=== PATIENT | male | born 1965 | race Caucasian/White ===

== ENCOUNTER 2017-01-06 04:41 | Emergency (ER) | payer OTHER ==
[~2017-01-06] VITALS: Ht 162.6 cm; Wt 99.0 kg
[~2017-01-06 04:41] MED LIST: METHO500 PO; NAPR-729 PO; NAPR500 PO
[2017-01-06 04:47] VITALS: BP_SYST 210; BP_SYST 213; BP_DIAS 100; BP_DIAS 105; PULSE 97; RESP 16; TEMP 98; O2SAT 98
[2017-01-06 05:00] VITALS: BP 196/62; PULSE 96; RESP 16; O2SAT 98
[2017-01-06] MEDS ORDERED: LISI10TA PO (05:02)
[2017-01-06 05:05] VITALS: BP 205/107
[2017-01-06] MEDS ORDERED: ACETAMINOPHEN 325 MG TAB PO ONE (05:15)
[2017-01-06] MEDS ORDERED: LISI-515 PO (05:16)
[2017-01-06] MEDS ORDERED: LISINOPRIL 20 MG TAB PO ONE (05:30)
--- NOTE | 2017-01-06 05:54 | PD ---
HPI Chief Complaint: ENT Complaint Time Seen by Provider: 05:06 Travel History International Travel<30 days: No Contact w/Intl Traveler<30days: No Traveled to known affect area: No History of Present Illness HPI The patient is a 51 year old male who presents to the [facility] emergency department with a history of right ear pain that he reports began 3 days ago. The patient reports that the pain has been constant although gradually getting worse with time. He reports that he's had swelling to the ear canal and yellow to green drainage. He reports that he has had problems with ear infections in the past. 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 The patient reports that he's been taking Aleve alternating with ibuprofen for the pain. He denies having any nasal congestion , sinus pressure, nasal discharge, cough, postnasal drip, or sore throat associated with this. The patient is noted on arrival to have elevated blood pressure with a systolic of 200. He reports that he does have a history of high blood pressure, however he has not been taking his medication for the last 2 years. He denies having any headache other than the ear pain, neck pain, chest pain, chest pressure, shortness of breath, or neurologic symptoms. Otherwise on review of systems, the patient denies any recent fevers, abdominal pain, vomiting, diarrhea, urinary symptoms. [facility] Past Medical History Narrative Medical The patient's past medical history is significant for hypertension. Hypertension: Yes Past Surgical History Narrative Surgical The patient's past surgical history is reportedly none. Surgical History: No Previous Surgery Social History Alcohol Use: No Tobacco Use: No Substance Use: No Allergies-Medications (Allergen,Severity, Reaction): Coded Allergies: Penicillin (Unverified Allergy, Intermediate, rash, 01/06/17) Reported Meds & Prescriptions Reported Meds & Active Scripts Active Lisinopril 20 Mg Tab 20 Mg PO DAILY Reported Lisinopril-Hctz 10-12.5 Mg Tab 1 Tab PO DAILY Review of Systems Except as stated in HPI: all other systems reviewed are Neg General / Constitutional: No: Fever Eyes: No: Visual changes HENT: Positive: Ear Discharge, Earache, No: Headaches, Sore Throat, Rhinorrhea , Congestion Cardiovascular: No: Chest Pain or Discomfort Respiratory: No: Cough, Shortness of Breath Gastrointestinal: No: Abdominal Pain Genitourinary: No: Dysuria Musculoskeletal: No: Pain Skin: No Rash Neurologic: No: Weakness, Focal Abnormalities, Change in Mentation, Slurred Speech, Sensory Disturbance Psychiatric: No: Depression Endocrine: No: Polydipsia Hematologic/Lymphatic: No: Easy Bruising Physical Exam Narrative General: The patient is a well-developed well-nourished female in no acute distress. Head and Neck exam: Head is normocephalic atraumatic. Eyes: EOMI, pupils are equal round and reactive to light. Ear exam: The patient on examination of the left ear has no tears swelling or tenderness on palpation, external auditory canal is not erythematous, tympanic membrane is pearly with a good cone of light, no erythema or exudate. On examination of the right ear the patient is noted to have swelling of the canal with erythema and tenderness on palpation of the tragus. The patient has a yellow discharge noted. The tympanic membrane is unable to be fully visualized due to the drainage in the canal and swelling. Nose: Midline septum with pink mucous membranes Mouth: Dentition unremarkable. Moist mucus membranes. Posterior oropharynx is not erythematous. No tonsillar hypertrophy. Uvula midline. Airway patent. Neck: No palpable lymphadenopathy. No nuchal rigidity. No thyromegaly. Cardiovascular: Regular rate and rhythm without murmurs, gallops, or rubs. Lungs: Clear to auscultation bilaterally. No wheezes, rhonchi, or rales. Abdomen: Soft, without tenderness to palpation in all 4 quadrants of the abdomen. No guarding, rebound, or rigidity. Normal bowel sounds are audible. Extremities: No clubbing, cyanosis, or edema. 2+ pulses in all 4 extremities. No calf tenderness on palpation. Back: No costovertebral angle tenderness to palpation. Neurologic Exam: Grossly nonfocal. Skin Exam: No rash noted. Intact skin that is warm and dry. Data Data Last Documented VS Vital Signs Date Time Temp Pulse Resp B/P Pulse Ox O2 Delivery O2 Flow Rate FiO2 01/06/17 06:28 87 187/90 01/06/17 05:00 16 98 01/06/17 04:47 98.0 Orders Acetaminophen (Tylenol) (01/06/17 05:15) Lisinopril (Prinivil) (01/06/17 05:30) [facility] Medical Decision Making Medical Screen Exam Complete: Yes Emergency Medical Condition: Yes Medical Record Reviewed: Yes Differential Diagnosis Otitis externa, versus otitis media Narrative Course During the course of the patients emergency department visit, the patients history, examination, and differential diagnosis were reviewed with the patient. The patient on examination has an otitis externa. The patient will be discharged home with Ciprodex eardrops and an oral antibiotic. The patient was started on lisinopril 20 mg by mouth. The patient will be given a prescription at discharge and encouraged follow-up with a primary care physician. The patient was initially provided Tylenol for pain. The patient is resting comfortably and feels better, is alert and in no distress. The patients results and examination findings were discussed with the patient. The repeat examination is unremarkable and benign. The history, exam, diagnostic testing, and current condition do not suggest any significant pathology to warrant further testing, continued ED treatment, admission, or surgical evaluation at this point. The vital signs have been stable. The patient does not have uncontrollable pain, intractable vomiting, or other significant symptoms. The patient's condition is stable and appropriate for discharge. The patient will pursue further outpatient evaluation with a primary care physician or other designated or consulting physician as indicated in the discharge instructions. The patient expressed understanding and was agreeable with this plan. Diagnosis Primary Impression: Otitis externa Qualified Code: H60.501 - Acute otitis externa of right ear, unspecified type Additional Impression: Hypertension Qualified Code: I10 - Essential hypertension Referrals: Primary Care Physician 3 days Patient Instructions: General Instructions, Hypertension (ED), Otitis Externa ( ED) Departure Forms: Tests/Procedures, Work Release Enter return to work date: Jan 07, 2017 Scripts Ciprofloxacin-Dexamethasone Otic Drops (Ciprodex Otic Drops)0.3-0.1% Susp4 Drop RIGHT EAR BID #1 BOTTLE Ref 0 Prov:Rizwana Garcia MD 01/06/17 Cephalexin (Keflex)500 Mg Qnv690 Mg PO Q6H #40 CAP Ref 0 Prov:Rizwana Garcia MD 01/06/17 Lisinopril 20 Mg Tab20 Mg PO DAILY #30 TAB Ref 0 Prov:Rizwana Garcia MD 01/06/17 Disposition: 01 DISCHARGE HOME Condition: Stable Rizwana Garcia MD Jan 06, 2017 05:54
[2017-01-06 06:28] VITALS: BP 187/90; PULSE 87
[2017-01-06] MEDS ORDERED: CIPR0.3S RIGHT EAR (06:46)
[2017-01-06] MEDS ORDERED: CEPH-460 PO (06:46)
[2017-01-06 06:52] VITALS: BP 175/89
== END 2017-01-06 06:47 | disposition home or self-care (01) ==
LOC: NEPC 04:41
DX: H60.501 Unspecified acute noninfective otitis externa, right ear (principal); I10 Essential (primary) hypertension
CPT/HCPCS: 99283

== ENCOUNTER 2018-07-27 04:37 | Inpatient (IN) ==
[2018-07-27] MEDS ORDERED: Sod Chloride 0.9% Inj 1,000 ML IV.CONT SCH (04:45)
--- NOTE | 2018-07-27 04:45 | ED ---
HPI General Chief Complaint: Neuro Symptoms/Deficit Stated Complaint: Medical Time Seen by Provider: 07/27/18 04:38 Source: family Mode of arrival: other Limitations: language barrier History of Present Illness HPI Narrative: Please note that the patient was seen before registration process was completed at 35 and notes as well as NIH SS was performed at that time Patient apparently started having symptoms of left facial droop slurred speech since about 1030pm at which time he felt weak and was unable to ambulate well but thought perhaps he had too much to drink...he made it to his bed but at a later time he was trying to get up from bed and ended up "sliding down the side " of the bed...at this time he called his son to assist him in getting up at around 4 in the morning and the patient was brought in here shortly after at 35 susanna has h/o dm and htn supposed to be on bp med and metformin but hasn't been on those for months Related Data Home Medications Medication Instructions Recorded Confirmed aspirin 81 mg PO DAILY 07/27/18 07/30/18 lisinopril 20 mg PO DAILY 07/27/18 07/30/18 Previous Rx's Medication Instructions Recorded amlodipine [Norvasc] 5 mg PO DAILY tab 07/30/18 clopidogrel [Plavix] 75 mg PO DAILY #0 tab 07/30/18 famotidine 20 mg PO BID tab 07/30/18 fenofibrate nanocrystallized 145 mg PO DAILY tab 07/30/18 hydralazine 50 mg PO Q8H tab 07/30/18 insulin detemir U-100 [Levemir 5 unit SUBCUT BID ml 07/30/18 U-100 Insulin] metformin [Glucophage] 500 mg PO BIDPC tab 07/30/18 Allergies Allergy/AdvReac Type Severity Reaction Status Date / Time penicillin G Allergy Intermediate rash Verified 07/30/18 20:38 Review of Systems ROS: all other systems reviewed are negative PMFSH History History Provided By: Family Member Medical History Medical History Diabetes (Acute) Hypertension (Acute) Non-compliant behavior (Acute) Surgical History Surgical History No history of previous surgery (Acute) Family History Family History Other Family history of acute myocardial infarction Family history of diabetes mellitus Family history of hypertension Social History Social History Substance History: No History of Abuse Second Hand Smoke Exposure: No Smoking Status: Former smoker Tobacco Type: Cigarettes How Often Do You Have a Drink Containing Alcohol: Monthly or less Hx Recent Travel: No Recent Travel in [facility] within the Last 8 Weeks: No Recent Out of Country Travel within the Last 8 Weeks: No Exam Narrative Exam Narrative: GENERAL: Well-nourished, well-developed patient in no apparent distress. SKIN: Warm and dry. HEAD: Atraumatic. Normocephalic. EYES: Pupils equal and round. No scleral icterus. No injection or drainage. ENT: No nasal bleeding or discharge. Mucous membranes pink and moist. NECK: Trachea midline. No JVD. CARDIOVASCULAR: Regular rate and rhythm. no rubs or gallops RESPIRATORY: No accessory muscle use. Clear to auscultation. Breath sounds equal bilaterally. GASTROINTESTINAL: Abdomen soft, non-tender, nondistended. No rebound or guarding MUSCULOSKELETAL: Extremities without clubbing, cyanosis, or edema. No obvious deformities. NEUROLOGICAL: Awake and alert. No obvious cranial nerve deficits. Motor grossly within normal limits. Five out of 5 muscle strength in the arms and legs on right...however lue 4/5, lle 3/5. slurred speech. Course Initial Documented Vital Signs Temperature 98.9 F 07/27/18 04:38 Pulse Rate 106 H 07/27/18 04:38 Respiratory Rate 18 07/27/18 04:38 Blood Pressure 221/107 H 07/27/18 04:38 Pulse Oximetry 98 07/27/18 04:38 Last Documented Vital Signs Temperature 97.4 F L 07/30/18 12:00 Pulse Rate 87 07/30/18 12:00 Respiratory Rate 18 07/30/18 12:00 Blood Pressure 131/72 07/30/18 12:00 Pulse Oximetry 96 07/30/18 12:00 Critical Care Time Critical Care Time: Yes Total Critical Care Time: 60 Attestation: Aggregate critical care time was 60 minutes. Time to perform other separately billable procedures was not included in the critical care time. My time did not include minutes spent treating any other patients simultaneously or on activities that did not directly contribute to the patient's treatment. The services I provided to this patient were to treat and/or prevent clinically significant deterioration I provided critical care services requiring my management, as noted below: Chart data review, documentation time, medication orders and management, vital sign assessments/reviewing monitor data, ordering and reviewing lab tests, ordering and interpreting/reviewing x-rays and diagnostic studies, care of the patient and discussion of the patient with the admitting physicians. NIH Stroke Scale NIHSS Time Completed NIHSS Time Completed: 04:35 NIH Stroke Scale Level of Consciousness: 0-Alert Responds to Commands: 0-Both tasks correct Gaze Eye Movement: 0-Horizontal movement WNL Visual Mims: 0-No visual field defect Facial Movement: 1-Minor facial palsy Motor Functions Arm LEFT: 1-Drift before 10 seconds Motor Functions Arm RIGHT: 0-No drift Motor Functions Leg LEFT: 2-Falls before 5 seconds Motor Functions Leg RIGHT: 0-No drift Best Language: 1-Mild aphasia Articulation: 1-Mild dysarthia Total: 6 Medical Decision Making MDM Narrative Medical decision making narrative: d/w dr mattson who stated not tpa candidate due to over 5hrs (around 6hrs), ct neg for ich, and cta neg for interventional lesions. Medical Screen Exam Complete: Yes Emergency Medical Condition: Yes Lab Data Result diagrams: 07/29/18 05:33 07/29/18 05:33 Lab Results 07/27/18 07/27/18 07/27/18 Range/Units 04:41 04:41 04:41 WBC 12.7 H (4.0-11.0) th/mm3 RBC 5.89 (4.50-5.90) mil/mm3 Hgb 17.2 H (13.0-17.0) gm/dL POC Hgb (Calc) (13.0-17.0) g/dL Hct 50.4 (39.0-51.0) % POC Hct (39-51.0) % MCV 85.5 (80.0-100.0) fL MCH 29.2 (27.0-34.0) pg MCHC 34.2 (32.0-36.0) % RDW 13.5 (11.6-17.2) % Plt Count 274 (150-450) th/mm3 MPV 9.1 (7.0-11.0) fL Neut % (Auto) 74.4 H (16.0-70.0) % Lymph % (Auto) 19.3 (9.0-44.0) % [place] % (Auto) 4.9 (0.0-8.0) % Eos % (Auto) 0.7 (0.0-4.0) % Baso % (Auto) 0.7 (0.0-2.0) % Neut # (Auto) 9.5 H (1.8-7.7) th/mm3 Lymph # (Auto) 2.5 (1.0-4.8) th/mm3 [place] # (Auto) 0.6 (0.0-0.9) th/mm3 Eos # (Auto) 0.1 (0.0-0.4) th/mm3 Baso # (Auto) 0.1 (0.0-0.2) th/mm3 WBC Differential . Differential Comment Auto diff final PT 10.0 (9.8-11.6) sec INR 1.0 Ratio APTT 28.2 (23.4-31.7) sec Thrombin Time Fibrinogen 439 H (227-377) mg/dL Lupus Anticoagulant (NOT DETECTED) LA PTT Screen (< OR = 40) seconds dRVVT Screen (< OR = 45) seconds LA dRVVT Confirm dRVVT Mix Hexagonal Phase Confirm Protein C Antigen (70-150) % Protein C Activity (70 - 150) % Protein S Activity (65 - 160) % Free Protein S Antigen (65 - 160) % Factor V Leiden Mutat (Negative) Factor V Leiden Interp Fact V Leiden Review By POC Sodium (137-144) mmol/L Sodium 137 (136-145) meq/L POC Potassium (3.6-5.0) mmol/L Potassium 4.0 (3.5-5.1) meq/L POC Chloride (102-111) mmol/L Chloride 101 (98-107) meq/L Carbon Dioxide 23.8 (21.0-32.0) meq/L Anion Gap 12 (5-15) meq/L POC BUN (5-21) mg/dL BUN 11 (7-18) mg/dL Creatinine 0.90 (0.60-1.30) mg/dL POC Creatinine (0.6-1.3) mg/dL Estimated GFR 88 L (>89) mL/min POC Glucose (68-110) mg/dL Random Glucose 291 H (74-106) mg/dL Hemoglobin A1c (4.3-6.0) % Calcium 8.2 L (8.5-10.1) mg/dL Phosphorus (2.5-4.9) mg/dL Magnesium (1.5-2.5) mg/dL Total Bilirubin 0.4 (0.2-1.0) mg/dL AST 19 (15-37) U/L ALT 48 (12-78) U/L Alkaline Phosphatase 184 H (45-117) U/L Total Creatine Kinase 85 (39-308) U/L Troponin I Less than 0.02 L (0.02-0.05) ng/mL Total Protein 7.9 (6.4-8.2) g/dL Albumin 3.8 (3.4-5.0) g/dL Triglycerides (42-150) mg/dL Cholesterol (120-200) mg/dL LDL Cholesterol, Calc (0-99) mg/dL HDL Cholesterol (40.0-60.0) mg/dL Cholesterol/HDL Ratio Ratio TSH (0.358-3.740) uIU/mL Free T4 (0.76-1.46) ng/dL Urine Color (Yellw/Straw) Urine Clarity (Clear) Urine pH (5.0-8.5) Ur Specific [place] (1.002-1.035) Urine Protein (Neg-Trace) mg/dL Urine Glucose (UA) (Negative) mg/dL Urine Ketones (Negative) mg/dL Urine Occult Blood (Negative) Urine Nitrate (Negative) Urine Bilirubin (Negative) Urine Urobilinogen (Less than 2) mg/dL Ur Leukocyte Esterase (Negative) Urine RBC (0-3) /hpf Urine WBC (0-5) /hpf Calcium Oxalate Crystal (None) /hpf Amorphous Sediment (None) /hpf Urine Bacteria (None) /hpf Hyaline Casts (0-3) /lpf Urine Mucus (Occasional) /lpf Micro UA Comment Ur Microscopic Review Urine Culture Comments Urine Opiates Screen (Neg) Ur Barbiturates Screen (Neg) Ur Amphetamines Screen (Neg) U Benzodiazepines Scrn (Neg) Urine Cocaine Screen (Neg) U Cannabinoids Screen (Neg) Serum Alcohol Less than 3 (0-5) mg/dL Anti-Cardiolipin IgG Ab GPL Anti-Cardiolipin IgM Ab MPL Prothrombin [id number] Mut Blood Type Blood Type Recheck Antibody Screen 07/27/18 07/27/18 07/27/18 Range/Units 04:41 04:41 04:41 WBC (4.0-11.0) th/mm3 RBC (4.50-5.90) mil/mm3 Hgb (13.0-17.0) gm/dL POC Hgb (Calc) 17.3 H (13.0-17.0) g/dL Hct (39.0-51.0) % POC Hct 51.0 (39-51.0) % MCV (80.0-100.0) fL MCH (27.0-34.0) pg MCHC (32.0-36.0) % RDW (11.6-17.2) % Plt Count (150-450) th/mm3 MPV (7.0-11.0) fL Neut % (Auto) (16.0-70.0) % Lymph % (Auto) (9.0-44.0) % [place] % (Auto) (0.0-8.0) % Eos % (Auto) (0.0-4.0) % Baso % (Auto) (0.0-2.0) % Neut # (Auto) (1.8-7.7) th/mm3 Lymph # (Auto) (1.0-4.8) th/mm3 [place] # (Auto) (0.0-0.9) th/mm3 Eos # (Auto) (0.0-0.4) th/mm3 Baso # (Auto) (0.0-0.2) th/mm3 WBC Differential Differential Comment PT (9.8-11.6) sec INR Ratio APTT (23.4-31.7) sec Thrombin Time Fibrinogen (227-377) mg/dL Lupus Anticoagulant (NOT DETECTED) LA PTT Screen (< OR = 40) seconds dRVVT Screen (< OR = 45) seconds LA dRVVT Confirm dRVVT Mix Hexagonal Phase Confirm Protein C Antigen (70-150) % Protein C Activity (70 - 150) % Protein S Activity (65 - 160) % Free Protein S Antigen (65 - 160) % Factor V Leiden Mutat (Negative) Factor V Leiden Interp Fact V Leiden Review By POC Sodium 136 L (137-144) mmol/L Sodium (136-145) meq/L POC Potassium 4.0 (3.6-5.0) mmol/L Potassium (3.5-5.1) meq/L POC Chloride 100 L (102-111) mmol/L Chloride (98-107) meq/L Carbon Dioxide (21.0-32.0) meq/L Anion Gap (5-15) meq/L POC BUN 10 (5-21) mg/dL BUN (7-18) mg/dL Creatinine (0.60-1.30) mg/dL POC Creatinine 0.6 (0.6-1.3) mg/dL Estimated GFR (>89) mL/min POC Glucose 299 H (68-110) mg/dL Random Glucose (74-106) mg/dL Hemoglobin A1c 10.4 H (4.3-6.0) % Calcium (8.5-10.1) mg/dL Phosphorus (2.5-4.9) mg/dL Magnesium (1.5-2.5) mg/dL Total Bilirubin (0.2-1.0) mg/dL AST (15-37) U/L ALT (12-78) U/L Alkaline Phosphatase (45-117) U/L Total Creatine Kinase (39-308) U/L Troponin I (0.02-0.05) ng/mL Total Protein (6.4-8.2) g/dL Albumin (3.4-5.0) g/dL Triglycerides (42-150) mg/dL Cholesterol (120-200) mg/dL LDL Cholesterol, Calc (0-99) mg/dL HDL Cholesterol (40.0-60.0) mg/dL Cholesterol/HDL Ratio Ratio TSH (0.358-3.740) uIU/mL Free T4 (0.76-1.46) ng/dL Urine Color (Yellw/Straw) Urine Clarity (Clear) Urine pH (5.0-8.5) Ur Specific [place] (1.002-1.035) Urine Protein (Neg-Trace) mg/dL Urine Glucose (UA) (Negative) mg/dL Urine Ketones (Negative) mg/dL Urine Occult Blood (Negative) Urine Nitrate (Negative) Urine Bilirubin (Negative) Urine Urobilinogen (Less than 2) mg/dL Ur Leukocyte Esterase (Negative) Urine RBC (0-3) /hpf Urine WBC (0-5) /hpf Calcium Oxalate Crystal (None) /hpf Amorphous Sediment (None) /hpf Urine Bacteria (None) /hpf Hyaline Casts (0-3) /lpf Urine Mucus (Occasional) /lpf Micro UA Comment Ur Microscopic Review Urine Culture Comments Urine Opiates Screen (Neg) Ur Barbiturates Screen (Neg) Ur Amphetamines Screen (Neg) U Benzodiazepines Scrn (Neg) Urine Cocaine Screen (Neg) U Cannabinoids Screen (Neg) Serum Alcohol (0-5) mg/dL Anti-Cardiolipin IgG Ab GPL Anti-Cardiolipin IgM Ab MPL Prothrombin [id number] Mut Blood Type O Positive Blood Type Recheck Required Antibody Screen Negative 07/27/18 07/27/18 07/27/18 Range/Units 10:00 11:29 11:29 WBC (4.0-11.0) th/mm3 RBC (4.50-5.90) mil/mm3 Hgb (13.0-17.0) gm/dL POC Hgb (Calc) (13.0-17.0) g/dL Hct (39.0-51.0) % POC Hct (39-51.0) % MCV (80.0-100.0) fL MCH (27.0-34.0) pg MCHC (32.0-36.0) % RDW (11.6-17.2) % Plt Count (150-450) th/mm3 MPV (7.0-11.0) fL Neut % (Auto) (16.0-70.0) % Lymph % (Auto) (9.0-44.0) % [place] % (Auto) (0.0-8.0) % Eos % (Auto) (0.0-4.0) % Baso % (Auto) (0.0-2.0) % Neut # (Auto) (1.8-7.7) th/mm3 Lymph # (Auto) (1.0-4.8) th/mm3 [place] # (Auto) (0.0-0.9) th/mm3 Eos # (Auto) (0.0-0.4) th/mm3 Baso # (Auto) (0.0-0.2) th/mm3 WBC Differential Differential Comment PT (9.8-11.6) sec INR Ratio APTT (23.4-31.7) sec Thrombin Time ND Fibrinogen (227-377) mg/dL Lupus Anticoagulant (NOT DETECTED) LA PTT Screen 32 (< OR = 40) seconds dRVVT Screen 40 (< OR = 45) seconds LA dRVVT Confirm ND dRVVT Mix ND Hexagonal Phase Confirm ND Protein C Antigen (70-150) % Protein C Activity (70 - 150) % Protein S Activity (65 - 160) % Free Protein S Antigen (65 - 160) % Factor V Leiden Mutat Negative (Negative) Factor V Leiden Interp . Fact V Leiden Review By See below POC Sodium (137-144) mmol/L Sodium (136-145) meq/L POC Potassium (3.6-5.0) mmol/L Potassium (3.5-5.1) meq/L POC Chloride (102-111) mmol/L Chloride (98-107) meq/L Carbon Dioxide (21.0-32.0) meq/L Anion Gap (5-15) meq/L POC BUN (5-21) mg/dL BUN (7-18) mg/dL Creatinine (0.60-1.30) mg/dL POC Creatinine (0.6-1.3) mg/dL Estimated GFR (>89) mL/min POC Glucose 226 H (68-110) mg/dL Random Glucose (74-106) mg/dL Hemoglobin A1c (4.3-6.0) % Calcium (8.5-10.1) mg/dL Phosphorus (2.5-4.9) mg/dL Magnesium (1.5-2.5) mg/dL Total Bilirubin (0.2-1.0) mg/dL AST (15-37) U/L ALT (12-78) U/L Alkaline Phosphatase (45-117) U/L Total Creatine Kinase (39-308) U/L Troponin I (0.02-0.05) ng/mL Total Protein (6.4-8.2) g/dL Albumin (3.4-5.0) g/dL Triglycerides (42-150) mg/dL Cholesterol (120-200) mg/dL LDL Cholesterol, Calc (0-99) mg/dL HDL Cholesterol (40.0-60.0) mg/dL Cholesterol/HDL Ratio Ratio TSH (0.358-3.740) uIU/mL Free T4 (0.76-1.46) ng/dL Urine Color (Yellw/Straw) Urine Clarity (Clear) Urine pH (5.0-8.5) Ur Specific [place] (1.002-1.035) Urine Protein (Neg-Trace) mg/dL Urine Glucose (UA) (Negative) mg/dL Urine Ketones (Negative) mg/dL Urine Occult Blood (Negative) Urine Nitrate (Negative) Urine Bilirubin (Negative) Urine Urobilinogen (Less than 2) mg/dL Ur Leukocyte Esterase (Negative) Urine RBC (0-3) /hpf Urine WBC (0-5) /hpf Calcium Oxalate Crystal (None) /hpf Amorphous Sediment (None) /hpf Urine Bacteria (None) /hpf Hyaline Casts (0-3) /lpf Urine Mucus (Occasional) /lpf Micro UA Comment Ur Microscopic Review Urine Culture Comments Urine Opiates Screen (Neg) Ur Barbiturates Screen (Neg) Ur Amphetamines Screen (Neg) U Benzodiazepines Scrn (Neg) Urine Cocaine Screen (Neg) U Cannabinoids Screen (Neg) Serum Alcohol (0-5) mg/dL Anti-Cardiolipin IgG Ab <9.4 GPL Anti-Cardiolipin IgM Ab <9.4 MPL Prothrombin [id number] Mut Blood Type Blood Type Recheck Antibody Screen 07/27/18 07/27/18 07/27/18 Range/Units 11:29 11:29 11:29 WBC (4.0-11.0) th/mm3 RBC (4.50-5.90) mil/mm3 Hgb (13.0-17.0) gm/dL POC Hgb (Calc) (13.0-17.0) g/dL Hct (39.0-51.0) % POC Hct (39-51.0) % MCV (80.0-100.0) fL MCH (27.0-34.0) pg MCHC (32.0-36.0) % RDW (11.6-17.2) % Plt Count (150-450) th/mm3 MPV (7.0-11.0) fL Neut % (Auto) (16.0-70.0) % Lymph % (Auto) (9.0-44.0) % [place] % (Auto) (0.0-8.0) % Eos % (Auto) (0.0-4.0) % Baso % (Auto) (0.0-2.0) % Neut # (Auto) (1.8-7.7) th/mm3 Lymph # (Auto) (1.0-4.8) th/mm3 [place] # (Auto) (0.0-0.9) th/mm3 Eos # (Auto) (0.0-0.4) th/mm3 Baso # (Auto) (0.0-0.2) th/mm3 WBC Differential Differential Comment PT (9.8-11.6) sec INR Ratio APTT (23.4-31.7) sec Thrombin Time Fibrinogen (227-377) mg/dL Lupus Anticoagulant (NOT DETECTED) LA PTT Screen (< OR = 40) seconds dRVVT Screen (< OR = 45) seconds LA dRVVT Confirm dRVVT Mix Hexagonal Phase Confirm Protein C Antigen 103 (70-150) % Protein C Activity 115 (70 - 150) % Protein S Activity 124 (65 - 160) % Free Protein S Antigen 132 (65 - 160) % Factor V Leiden Mutat (Negative) Factor V Leiden Interp Fact V Leiden Review By POC Sodium (137-144) mmol/L Sodium (136-145) meq/L POC Potassium (3.6-5.0) mmol/L Potassium (3.5-5.1) meq/L POC Chloride (102-111) mmol/L Chloride (98-107) meq/L Carbon Dioxide (21.0-32.0) meq/L Anion Gap (5-15) meq/L POC BUN (5-21) mg/dL BUN (7-18) mg/dL Creatinine (0.60-1.30) mg/dL POC Creatinine (0.6-1.3) mg/dL Estimated GFR (>89) mL/min POC Glucose (68-110) mg/dL Random Glucose (74-106) mg/dL Hemoglobin A1c (4.3-6.0) % Calcium (8.5-10.1) mg/dL Phosphorus (2.5-4.9) mg/dL Magnesium (1.5-2.5) mg/dL Total Bilirubin (0.2-1.0) mg/dL AST (15-37) U/L ALT (12-78) U/L Alkaline Phosphatase (45-117) U/L Total Creatine Kinase (39-308) U/L Troponin I (0.02-0.05) ng/mL Total Protein (6.4-8.2) g/dL Albumin (3.4-5.0) g/dL Triglycerides (42-150) mg/dL Cholesterol (120-200) mg/dL LDL Cholesterol, Calc (0-99) mg/dL HDL Cholesterol (40.0-60.0) mg/dL Cholesterol/HDL Ratio Ratio TSH (0.358-3.740) uIU/mL Free T4 0.99 (0.76-1.46) ng/dL Urine Color (Yellw/Straw) Urine Clarity (Clear) Urine pH (5.0-8.5) Ur Specific [place] (1.002-1.035) Urine Protein (Neg-Trace) mg/dL Urine Glucose (UA) (Negative) mg/dL Urine Ketones (Negative) mg/dL Urine Occult Blood (Negative) Urine Nitrate (Negative) Urine Bilirubin (Negative) Urine Urobilinogen (Less than 2) mg/dL Ur Leukocyte Esterase (Negative) Urine RBC (0-3) /hpf Urine WBC (0-5) /hpf Calcium Oxalate Crystal (None) /hpf Amorphous Sediment (None) /hpf Urine Bacteria (None) /hpf Hyaline Casts (0-3) /lpf Urine Mucus (Occasional) /lpf Micro UA Comment Ur Microscopic Review Urine Culture Comments Urine Opiates Screen (Neg) Ur Barbiturates Screen (Neg) Ur Amphetamines Screen (Neg) U Benzodiazepines Scrn (Neg) Urine Cocaine Screen (Neg) U Cannabinoids Screen (Neg) Serum Alcohol (0-5) mg/dL Anti-Cardiolipin IgG Ab GPL Anti-Cardiolipin IgM Ab MPL Prothrombin [id number] Mut Blood Type Blood Type Recheck Antibody Screen 07/27/18 07/27/18 07/27/18 Range/Units 11:29 12:31 17:51 WBC (4.0-11.0) th/mm3 RBC (4.50-5.90) mil/mm3 Hgb (13.0-17.0) gm/dL POC Hgb (Calc) (13.0-17.0) g/dL Hct (39.0-51.0) % POC Hct (39-51.0) % MCV (80.0-100.0) fL MCH (27.0-34.0) pg MCHC (32.0-36.0) % RDW (11.6-17.2) % Plt Count (150-450) th/mm3 MPV (7.0-11.0) fL Neut % (Auto) (16.0-70.0) % Lymph % (Auto) (9.0-44.0) % [place] % (Auto) (0.0-8.0) % Eos % (Auto) (0.0-4.0) % Baso % (Auto) (0.0-2.0) % Neut # (Auto) (1.8-7.7) th/mm3 Lymph # (Auto) (1.0-4.8) th/mm3 [place] # (Auto) (0.0-0.9) th/mm3 Eos # (Auto) (0.0-0.4) th/mm3 Baso # (Auto) (0.0-0.2) th/mm3 WBC Differential Differential Comment PT (9.8-11.6) sec INR Ratio APTT (23.4-31.7) sec Thrombin Time Fibrinogen (227-377) mg/dL Lupus Anticoagulant (NOT DETECTED) LA PTT Screen (< OR = 40) seconds dRVVT Screen (< OR = 45) seconds LA dRVVT Confirm dRVVT Mix Hexagonal Phase Confirm Protein C Antigen (70-150) % Protein C Activity (70 - 150) % Protein S Activity (65 - 160) % Free Protein S Antigen (65 - 160) % Factor V Leiden Mutat (Negative) Factor V Leiden Interp Fact V Leiden Review By POC Sodium (137-144) mmol/L Sodium (136-145) meq/L POC Potassium (3.6-5.0) mmol/L Potassium (3.5-5.1) meq/L POC Chloride (102-111) mmol/L Chloride (98-107) meq/L Carbon Dioxide (21.0-32.0) meq/L Anion Gap (5-15) meq/L POC BUN (5-21) mg/dL BUN (7-18) mg/dL Creatinine (0.60-1.30) mg/dL POC Creatinine (0.6-1.3) mg/dL Estimated GFR (>89) mL/min POC Glucose 209 H 223 H (68-110) mg/dL Random Glucose (74-106) mg/dL Hemoglobin A1c (4.3-6.0) % Calcium (8.5-10.1) mg/dL Phosphorus (2.5-4.9) mg/dL Magnesium (1.5-2.5) mg/dL Total Bilirubin (0.2-1.0) mg/dL AST (15-37) U/L ALT (12-78) U/L Alkaline Phosphatase (45-117) U/L Total Creatine Kinase (39-308) U/L Troponin I (0.02-0.05) ng/mL Total Protein (6.4-8.2) g/dL Albumin (3.4-5.0) g/dL Triglycerides (42-150) mg/dL Cholesterol (120-200) mg/dL LDL Cholesterol, Calc (0-99) mg/dL HDL Cholesterol (40.0-60.0) mg/dL Cholesterol/HDL Ratio Ratio TSH 2.200 (0.358-3.740) uIU/mL Free T4 (0.76-1.46) ng/dL Urine Color (Yellw/Straw) Urine Clarity (Clear) Urine pH (5.0-8.5) Ur Specific [place] (1.002-1.035) Urine Protein (Neg-Trace) mg/dL Urine Glucose (UA) (Negative) mg/dL Urine Ketones (Negative) mg/dL Urine Occult Blood (Negative) Urine Nitrate (Negative) Urine Bilirubin (Negative) Urine Urobilinogen (Less than 2) mg/dL Ur Leukocyte Esterase (Negative) Urine RBC (0-3) /hpf Urine WBC (0-5) /hpf Calcium Oxalate Crystal (None) /hpf Amorphous Sediment (None) /hpf Urine Bacteria (None) /hpf Hyaline Casts (0-3) /lpf Urine Mucus (Occasional) /lpf Micro UA Comment Ur Microscopic Review Urine Culture Comments Urine Opiates Screen (Neg) Ur Barbiturates Screen (Neg) Ur Amphetamines Screen (Neg) U Benzodiazepines Scrn (Neg) Urine Cocaine Screen (Neg) U Cannabinoids Screen (Neg) Serum Alcohol (0-5) mg/dL Anti-Cardiolipin IgG Ab GPL Anti-Cardiolipin IgM Ab MPL Prothrombin [id number] Mut Blood Type Blood Type Recheck Antibody Screen 07/27/18 07/28/18 07/28/18 Range/Units 19:58 06:07 06:07 WBC 11.7 H (4.0-11.0) th/mm3 RBC 5.63 (4.50-5.90) mil/mm3 Hgb 16.8 (13.0-17.0) gm/dL POC Hgb (Calc) (13.0-17.0) g/dL Hct 47.6 (39.0-51.0) % POC Hct (39-51.0) % MCV 84.6 (80.0-100.0) fL MCH 29.8 (27.0-34.0) pg MCHC 35.3 (32.0-36.0) % RDW 13.5 (11.6-17.2) % Plt Count 275 (150-450) th/mm3 MPV 9.3 (7.0-11.0) fL Neut % (Auto) 79.8 H (16.0-70.0) % Lymph % (Auto) 13.1 (9.0-44.0) % [place] % (Auto) 6.2 (0.0-8.0) % Eos % (Auto) 0.7 (0.0-4.0) % Baso % (Auto) 0.2 (0.0-2.0) % Neut # (Auto) 9.3 H (1.8-7.7) th/mm3 Lymph # (Auto) 1.5 (1.0-4.8) th/mm3 [place] # (Auto) 0.7 (0.0-0.9) th/mm3 Eos # (Auto) 0.1 (0.0-0.4) th/mm3 Baso # (Auto) 0.0 (0.0-0.2) th/mm3 WBC Differential . Differential Comment Auto diff final PT (9.8-11.6) sec INR Ratio APTT (23.4-31.7) sec Thrombin Time Fibrinogen (227-377) mg/dL Lupus Anticoagulant (NOT DETECTED) LA PTT Screen (< OR = 40) seconds dRVVT Screen (< OR = 45) seconds LA dRVVT Confirm dRVVT Mix Hexagonal Phase Confirm Protein C Antigen (70-150) % Protein C Activity (70 - 150) % Protein S Activity (65 - 160) % Free Protein S Antigen (65 - 160) % Factor V Leiden Mutat (Negative) Factor V Leiden Interp Fact V Leiden Review By POC Sodium (137-144) mmol/L Sodium 138 (136-145) meq/L POC Potassium (3.6-5.0) mmol/L Potassium 3.9 (3.5-5.1) meq/L POC Chloride (102-111) mmol/L Chloride 105 (98-107) meq/L Carbon Dioxide 25.3 (21.0-32.0) meq/L Anion Gap 8 (5-15) meq/L POC BUN (5-21) mg/dL BUN 9 (7-18) mg/dL Creatinine 0.75 (0.60-1.30) mg/dL POC Creatinine (0.6-1.3) mg/dL Estimated GFR Greater than 89 (>89) mL/min POC Glucose 213 H (68-110) mg/dL Random Glucose 207 H (74-106) mg/dL Hemoglobin A1c (4.3-6.0) % Calcium 8.4 L (8.5-10.1) mg/dL Phosphorus 2.4 L (2.5-4.9) mg/dL Magnesium 2.0 (1.5-2.5) mg/dL Total Bilirubin 0.7 (0.2-1.0) mg/dL AST 28 (15-37) U/L ALT 43 (12-78) U/L Alkaline Phosphatase 127 H (45-117) U/L Total Creatine Kinase (39-308) U/L Troponin I (0.02-0.05) ng/mL Total Protein 7.2 D (6.4-8.2) g/dL Albumin 3.3 L (3.4-5.0) g/dL Triglycerides 549 H (42-150) mg/dL Cholesterol 187 (120-200) mg/dL LDL Cholesterol, Calc (0-99) mg/dL HDL Cholesterol 28.5 L (40.0-60.0) mg/dL Cholesterol/HDL Ratio 6.56 Ratio TSH (0.358-3.740) uIU/mL Free T4 (0.76-1.46) ng/dL Urine Color (Yellw/Straw) Urine Clarity (Clear) Urine pH (5.0-8.5) Ur Specific [place] (1.002-1.035) Urine Protein (Neg-Trace) mg/dL Urine Glucose (UA) (Negative) mg/dL Urine Ketones (Negative) mg/dL Urine Occult Blood (Negative) Urine Nitrate (Negative) Urine Bilirubin (Negative) Urine Urobilinogen (Less than 2) mg/dL Ur Leukocyte Esterase (Negative) Urine RBC (0-3) /hpf Urine WBC (0-5) /hpf Calcium Oxalate Crystal (None) /hpf Amorphous Sediment (None) /hpf Urine Bacteria (None) /hpf Hyaline Casts (0-3) /lpf Urine Mucus (Occasional) /lpf Micro UA Comment Ur Microscopic Review Urine Culture Comments Urine Opiates Screen (Neg) Ur Barbiturates Screen (Neg) Ur Amphetamines Screen (Neg) U Benzodiazepines Scrn (Neg) Urine Cocaine Screen (Neg) U Cannabinoids Screen (Neg) Serum Alcohol (0-5) mg/dL Anti-Cardiolipin IgG Ab GPL Anti-Cardiolipin IgM Ab MPL Prothrombin [id number] Mut Blood Type Blood Type Recheck Antibody Screen 07/28/18 07/28/18 07/28/18 Range/Units 06:07 08:26 11:53 WBC (4.0-11.0) th/mm3 RBC (4.50-5.90) mil/mm3 Hgb (13.0-17.0) gm/dL POC Hgb (Calc) (13.0-17.0) g/dL Hct (39.0-51.0) % POC Hct (39-51.0) % MCV (80.0-100.0) fL MCH (27.0-34.0) pg MCHC (32.0-36.0) % RDW (11.6-17.2) % Plt Count (150-450) th/mm3 MPV (7.0-11.0) fL Neut % (Auto) (16.0-70.0) % Lymph % (Auto) (9.0-44.0) % [place] % (Auto) (0.0-8.0) % Eos % (Auto) (0.0-4.0) % Baso % (Auto) (0.0-2.0) % Neut # (Auto) (1.8-7.7) th/mm3 Lymph # (Auto) (1.0-4.8) th/mm3 [place] # (Auto) (0.0-0.9) th/mm3 Eos # (Auto) (0.0-0.4) th/mm3 Baso # (Auto) (0.0-0.2) th/mm3 WBC Differential Differential Comment PT (9.8-11.6) sec INR Ratio APTT (23.4-31.7) sec Thrombin Time Fibrinogen (227-377) mg/dL Lupus Anticoagulant (NOT DETECTED) LA PTT Screen (< OR = 40) seconds dRVVT Screen (< OR = 45) seconds LA dRVVT Confirm dRVVT Mix Hexagonal Phase Confirm Protein C Antigen (70-150) % Protein C Activity (70 - 150) % Protein S Activity (65 - 160) % Free Protein S Antigen (65 - 160) % Factor V Leiden Mutat (Negative) Factor V Leiden Interp Fact V Leiden Review By POC Sodium (137-144) mmol/L Sodium (136-145) meq/L POC Potassium (3.6-5.0) mmol/L Potassium (3.5-5.1) meq/L POC Chloride (102-111) mmol/L Chloride (98-107) meq/L Carbon Dioxide (21.0-32.0) meq/L Anion Gap (5-15) meq/L POC BUN (5-21) mg/dL BUN (7-18) mg/dL Creatinine (0.60-1.30) mg/dL POC Creatinine (0.6-1.3) mg/dL Estimated GFR (>89) mL/min POC Glucose 229 H 302 H (68-110) mg/dL Random Glucose (74-106) mg/dL Hemoglobin A1c 10.3 H (4.3-6.0) % Calcium (8.5-10.1) mg/dL Phosphorus (2.5-4.9) mg/dL Magnesium (1.5-2.5) mg/dL Total Bilirubin (0.2-1.0) mg/dL AST (15-37) U/L ALT (12-78) U/L Alkaline Phosphatase (45-117) U/L Total Creatine Kinase (39-308) U/L Troponin I (0.02-0.05) ng/mL Total Protein (6.4-8.2) g/dL Albumin (3.4-5.0) g/dL Triglycerides (42-150) mg/dL Cholesterol (120-200) mg/dL LDL Cholesterol, Calc (0-99) mg/dL HDL Cholesterol (40.0-60.0) mg/dL Cholesterol/HDL Ratio Ratio TSH (0.358-3.740) uIU/mL Free T4 (0.76-1.46) ng/dL Urine Color (Yellw/Straw) Urine Clarity (Clear) Urine pH (5.0-8.5) Ur Specific [place] (1.002-1.035) Urine Protein (Neg-Trace) mg/dL Urine Glucose (UA) (Negative) mg/dL Urine Ketones (Negative) mg/dL Urine Occult Blood (Negative) Urine Nitrate (Negative) Urine Bilirubin (Negative) Urine Urobilinogen (Less than 2) mg/dL Ur Leukocyte Esterase (Negative) Urine RBC (0-3) /hpf Urine WBC (0-5) /hpf Calcium Oxalate Crystal (None) /hpf Amorphous Sediment (None) /hpf Urine Bacteria (None) /hpf Hyaline Casts (0-3) /lpf Urine Mucus (Occasional) /lpf Micro UA Comment Ur Microscopic Review Urine Culture Comments Urine Opiates Screen (Neg) Ur Barbiturates Screen (Neg) Ur Amphetamines Screen (Neg) U Benzodiazepines Scrn (Neg) Urine Cocaine Screen (Neg) U Cannabinoids Screen (Neg) Serum Alcohol (0-5) mg/dL Anti-Cardiolipin IgG Ab GPL Anti-Cardiolipin IgM Ab MPL Prothrombin [id number] Mut Blood Type Blood Type Recheck Antibody Screen 07/28/18 07/28/18 07/28/18 Range/Units 17:58 21:10 21:10 WBC (4.0-11.0) th/mm3 RBC (4.50-5.90) mil/mm3 Hgb (13.0-17.0) gm/dL POC Hgb (Calc) (13.0-17.0) g/dL Hct (39.0-51.0) % POC Hct (39-51.0) % MCV (80.0-100.0) fL MCH (27.0-34.0) pg MCHC (32.0-36.0) % RDW (11.6-17.2) % Plt Count (150-450) th/mm3 MPV (7.0-11.0) fL Neut % (Auto) (16.0-70.0) % Lymph % (Auto) (9.0-44.0) % [place] % (Auto) (0.0-8.0) % Eos % (Auto) (0.0-4.0) % Baso % (Auto) (0.0-2.0) % Neut # (Auto) (1.8-7.7) th/mm3 Lymph # (Auto) (1.0-4.8) th/mm3 [place] # (Auto) (0.0-0.9) th/mm3 Eos # (Auto) (0.0-0.4) th/mm3 Baso # (Auto) (0.0-0.2) th/mm3 WBC Differential Differential Comment PT (9.8-11.6) sec INR Ratio APTT (23.4-31.7) sec Thrombin Time Fibrinogen (227-377) mg/dL Lupus Anticoagulant (NOT DETECTED) LA PTT Screen (< OR = 40) seconds dRVVT Screen (< OR = 45) seconds LA dRVVT Confirm dRVVT Mix Hexagonal Phase Confirm Protein C Antigen (70-150) % Protein C Activity (70 - 150) % Protein S Activity (65 - 160) % Free Protein S Antigen (65 - 160) % Factor V Leiden Mutat (Negative) Factor V Leiden Interp Fact V Leiden Review By POC Sodium (137-144) mmol/L Sodium (136-145) meq/L POC Potassium (3.6-5.0) mmol/L Potassium (3.5-5.1) meq/L POC Chloride (102-111) mmol/L Chloride (98-107) meq/L Carbon Dioxide (21.0-32.0) meq/L Anion Gap (5-15) meq/L POC BUN (5-21) mg/dL BUN (7-18) mg/dL Creatinine (0.60-1.30) mg/dL POC Creatinine (0.6-1.3) mg/dL Estimated GFR (>89) mL/min POC Glucose 210 H (68-110) mg/dL Random Glucose (74-106) mg/dL Hemoglobin A1c (4.3-6.0) % Calcium (8.5-10.1) mg/dL Phosphorus (2.5-4.9) mg/dL Magnesium (1.5-2.5) mg/dL Total Bilirubin (0.2-1.0) mg/dL AST (15-37) U/L ALT (12-78) U/L Alkaline Phosphatase (45-117) U/L Total Creatine Kinase (39-308) U/L Troponin I (0.02-0.05) ng/mL Total Protein (6.4-8.2) g/dL Albumin (3.4-5.0) g/dL Triglycerides (42-150) mg/dL Cholesterol (120-200) mg/dL LDL Cholesterol, Calc (0-99) mg/dL HDL Cholesterol (40.0-60.0) mg/dL Cholesterol/HDL Ratio Ratio TSH (0.358-3.740) uIU/mL Free T4 (0.76-1.46) ng/dL Urine Color Yellow (Yellw/Straw) Urine Clarity Hazy H (Clear) Urine pH 5.0 (5.0-8.5) Ur Specific [place] 1.028 (1.002-1.035) Urine Protein 100 H (Neg-Trace) mg/dL Urine Glucose (UA) 500 or greater (Negative) mg/dL Urine Ketones Negative (Negative) mg/dL Urine Occult Blood Negative (Negative) Urine Nitrate Negative (Negative) Urine Bilirubin Negative (Negative) Urine Urobilinogen Less than 2 (Less than 2) mg/dL Ur Leukocyte Esterase Negative (Negative) Urine RBC 1 (0-3) /hpf Urine WBC 8 H (0-5) /hpf Calcium Oxalate Crystal Moderate H (None) /hpf Amorphous Sediment Rare H (None) /hpf Urine Bacteria Occasional H (None) /hpf Hyaline Casts 1 (0-3) /lpf Urine Mucus Few H (Occasional) /lpf Micro UA Comment Culture not ind Ur Microscopic Review Not Reportable Urine Culture Comments Culture not ind Urine Opiates Screen Neg (Neg) Ur Barbiturates Screen Neg (Neg) Ur Amphetamines Screen Neg (Neg) U Benzodiazepines Scrn Neg (Neg) Urine Cocaine Screen Pos H (Neg) U Cannabinoids Screen Pos H (Neg) Serum Alcohol (0-5) mg/dL Anti-Cardiolipin IgG Ab GPL Anti-Cardiolipin IgM Ab MPL Prothrombin [id number] Mut Blood Type Blood Type Recheck Antibody Screen 07/28/18 07/29/18 07/29/18 Range/Units 21:30 05:33 05:33 WBC 10.1 (4.0-11.0) th/mm3 RBC 5.60 (4.50-5.90) mil/mm3 Hgb 16.8 (13.0-17.0) gm/dL POC Hgb (Calc) (13.0-17.0) g/dL Hct 47.6 (39.0-51.0) % POC Hct (39-51.0) % MCV 85.0 (80.0-100.0) fL MCH 30.1 (27.0-34.0) pg MCHC 35.4 (32.0-36.0) % RDW 13.5 (11.6-17.2) % Plt Count 259 (150-450) th/mm3 MPV 9.3 (7.0-11.0) fL Neut % (Auto) 75.0 H (16.0-70.0) % Lymph % (Auto) 16.3 (9.0-44.0) % [place] % (Auto) 7.7 (0.0-8.0) % Eos % (Auto) 0.8 (0.0-4.0) % Baso % (Auto) 0.2 (0.0-2.0) % Neut # (Auto) 7.6 (1.8-7.7) th/mm3 Lymph # (Auto) 1.7 (1.0-4.8) th/mm3 [place] # (Auto) 0.8 (0.0-0.9) th/mm3 Eos # (Auto) 0.1 (0.0-0.4) th/mm3 Baso # (Auto) 0.0 (0.0-0.2) th/mm3 WBC Differential . Differential Comment Auto diff final PT (9.8-11.6) sec INR Ratio APTT (23.4-31.7) sec Thrombin Time Fibrinogen (227-377) mg/dL Lupus Anticoagulant (NOT DETECTED) LA PTT Screen (< OR = 40) seconds dRVVT Screen (< OR = 45) seconds LA dRVVT Confirm dRVVT Mix Hexagonal Phase Confirm Protein C Antigen (70-150) % Protein C Activity (70 - 150) % Protein S Activity (65 - 160) % Free Protein S Antigen (65 - 160) % Factor V Leiden Mutat (Negative) Factor V Leiden Interp Fact V Leiden Review By POC Sodium (137-144) mmol/L Sodium 140 (136-145) meq/L POC Potassium (3.6-5.0) mmol/L Potassium 4.3 (3.5-5.1) meq/L POC Chloride (102-111) mmol/L Chloride 106 (98-107) meq/L Carbon Dioxide 23.8 (21.0-32.0) meq/L Anion Gap 10 (5-15) meq/L POC BUN (5-21) mg/dL BUN 16 (7-18) mg/dL Creatinine 0.79 (0.60-1.30) mg/dL POC Creatinine (0.6-1.3) mg/dL Estimated GFR Greater than 89 (>89) mL/min POC Glucose 276 H (68-110) mg/dL Random Glucose 191 H (74-106) mg/dL Hemoglobin A1c (4.3-6.0) % Calcium 8.4 L (8.5-10.1) mg/dL Phosphorus 3.3 (2.5-4.9) mg/dL Magnesium 2.0 (1.5-2.5) mg/dL Total Bilirubin 0.6 (0.2-1.0) mg/dL AST 29 (15-37) U/L ALT 48 (12-78) U/L Alkaline Phosphatase 123 H (45-117) U/L Total Creatine Kinase (39-308) U/L Troponin I (0.02-0.05) ng/mL Total Protein 6.8 (6.4-8.2) g/dL Albumin 3.2 L (3.4-5.0) g/dL Triglycerides (42-150) mg/dL Cholesterol (120-200) mg/dL LDL Cholesterol, Calc (0-99) mg/dL HDL Cholesterol (40.0-60.0) mg/dL Cholesterol/HDL Ratio Ratio TSH (0.358-3.740) uIU/mL Free T4 (0.76-1.46) ng/dL Urine Color (Yellw/Straw) Urine Clarity (Clear) Urine pH (5.0-8.5) Ur Specific [place] (1.002-1.035) Urine Protein (Neg-Trace) mg/dL Urine Glucose (UA) (Negative) mg/dL Urine Ketones (Negative) mg/dL Urine Occult Blood (Negative) Urine Nitrate (Negative) Urine Bilirubin (Negative) Urine Urobilinogen (Less than 2) mg/dL Ur Leukocyte Esterase (Negative) Urine RBC (0-3) /hpf Urine WBC (0-5) /hpf Calcium Oxalate Crystal (None) /hpf Amorphous Sediment (None) /hpf Urine Bacteria (None) /hpf Hyaline Casts (0-3) /lpf Urine Mucus (Occasional) /lpf Micro UA Comment Ur Microscopic Review Urine Culture Comments Urine Opiates Screen (Neg) Ur Barbiturates Screen (Neg) Ur Amphetamines Screen (Neg) U Benzodiazepines Scrn (Neg) Urine Cocaine Screen (Neg) U Cannabinoids Screen (Neg) Serum Alcohol (0-5) mg/dL Anti-Cardiolipin IgG Ab GPL Anti-Cardiolipin IgM Ab MPL Prothrombin [id number] Mut Blood Type Blood Type Recheck Antibody Screen 07/29/18 07/29/18 07/29/18 Range/Units 08:20 12:36 16:27 WBC (4.0-11.0) th/mm3 RBC (4.50-5.90) mil/mm3 Hgb (13.0-17.0) gm/dL POC Hgb (Calc) (13.0-17.0) g/dL Hct (39.0-51.0) % POC Hct (39-51.0) % MCV (80.0-100.0) fL MCH (27.0-34.0) pg MCHC (32.0-36.0) % RDW (11.6-17.2) % Plt Count (150-450) th/mm3 MPV (7.0-11.0) fL Neut % (Auto) (16.0-70.0) % Lymph % (Auto) (9.0-44.0) % [place] % (Auto) (0.0-8.0) % Eos % (Auto) (0.0-4.0) % Baso % (Auto) (0.0-2.0) % Neut # (Auto) (1.8-7.7) th/mm3 Lymph # (Auto) (1.0-4.8) th/mm3 [place] # (Auto) (0.0-0.9) th/mm3 Eos # (Auto) (0.0-0.4) th/mm3 Baso # (Auto) (0.0-0.2) th/mm3 WBC Differential Differential Comment PT (9.8-11.6) sec INR Ratio APTT (23.4-31.7) sec Thrombin Time Fibrinogen (227-377) mg/dL Lupus Anticoagulant (NOT DETECTED) LA PTT Screen (< OR = 40) seconds dRVVT Screen (< OR = 45) seconds LA dRVVT Confirm dRVVT Mix Hexagonal Phase Confirm Protein C Antigen (70-150) % Protein C Activity (70 - 150) % Protein S Activity (65 - 160) % Free Protein S Antigen (65 - 160) % Factor V Leiden Mutat (Negative) Factor V Leiden Interp Fact V Leiden Review By POC Sodium (137-144) mmol/L Sodium (136-145) meq/L POC Potassium (3.6-5.0) mmol/L Potassium (3.5-5.1) meq/L POC Chloride (102-111) mmol/L Chloride (98-107) meq/L Carbon Dioxide (21.0-32.0) meq/L Anion Gap (5-15) meq/L POC BUN (5-21) mg/dL BUN (7-18) mg/dL Creatinine (0.60-1.30) mg/dL POC Creatinine (0.6-1.3) mg/dL Estimated GFR (>89) mL/min POC Glucose 206 H 273 H 258 H (68-110) mg/dL Random Glucose (74-106) mg/dL Hemoglobin A1c (4.3-6.0) % Calcium (8.5-10.1) mg/dL Phosphorus (2.5-4.9) mg/dL Magnesium (1.5-2.5) mg/dL Total Bilirubin (0.2-1.0) mg/dL AST (15-37) U/L ALT (12-78) U/L Alkaline Phosphatase (45-117) U/L Total Creatine Kinase (39-308) U/L Troponin I (0.02-0.05) ng/mL Total Protein (6.4-8.2) g/dL Albumin (3.4-5.0) g/dL Triglycerides (42-150) mg/dL Cholesterol (120-200) mg/dL LDL Cholesterol, Calc (0-99) mg/dL HDL Cholesterol (40.0-60.0) mg/dL Cholesterol/HDL Ratio Ratio TSH (0.358-3.740) uIU/mL Free T4 (0.76-1.46) ng/dL Urine Color (Yellw/Straw) Urine Clarity (Clear) Urine pH (5.0-8.5) Ur Specific [place] (1.002-1.035) Urine Protein (Neg-Trace) mg/dL Urine Glucose (UA) (Negative) mg/dL Urine Ketones (Negative) mg/dL Urine Occult Blood (Negative) Urine Nitrate (Negative) Urine Bilirubin (Negative) Urine Urobilinogen (Less than 2) mg/dL Ur Leukocyte Esterase (Negative) Urine RBC (0-3) /hpf Urine WBC (0-5) /hpf Calcium Oxalate Crystal (None) /hpf Amorphous Sediment (None) /hpf Urine Bacteria (None) /hpf Hyaline Casts (0-3) /lpf Urine Mucus (Occasional) /lpf Micro UA Comment Ur Microscopic Review Urine Culture Comments Urine Opiates Screen (Neg) Ur Barbiturates Screen (Neg) Ur Amphetamines Screen (Neg) U Benzodiazepines Scrn (Neg) Urine Cocaine Screen (Neg) U Cannabinoids Screen (Neg) Serum Alcohol (0-5) mg/dL Anti-Cardiolipin IgG Ab GPL Anti-Cardiolipin IgM Ab MPL Prothrombin [id number] Mut Blood Type Blood Type Recheck Antibody Screen 07/29/18 07/30/18 Range/Units 19:51 08:15 WBC (4.0-11.0) th/mm3 RBC (4.50-5.90) mil/mm3 Hgb (13.0-17.0) gm/dL POC Hgb (Calc) (13.0-17.0) g/dL Hct (39.0-51.0) % POC Hct (39-51.0) % MCV (80.0-100.0) fL MCH (27.0-34.0) pg MCHC (32.0-36.0) % RDW (11.6-17.2) % Plt Count (150-450) th/mm3 MPV (7.0-11.0) fL Neut % (Auto) (16.0-70.0) % Lymph % (Auto) (9.0-44.0) % [place] % (Auto) (0.0-8.0) % Eos % (Auto) (0.0-4.0) % Baso % (Auto) (0.0-2.0) % Neut # (Auto) (1.8-7.7) th/mm3 Lymph # (Auto) (1.0-4.8) th/mm3 [place] # (Auto) (0.0-0.9) th/mm3 Eos # (Auto) (0.0-0.4) th/mm3 Baso # (Auto) (0.0-0.2) th/mm3 WBC Differential Differential Comment PT (9.8-11.6) sec INR Ratio APTT (23.4-31.7) sec Thrombin Time Fibrinogen (227-377) mg/dL Lupus Anticoagulant (NOT DETECTED) LA PTT Screen (< OR = 40) seconds dRVVT Screen (< OR = 45) seconds LA dRVVT Confirm dRVVT Mix Hexagonal Phase Confirm Protein C Antigen (70-150) % Protein C Activity (70 - 150) % Protein S Activity (65 - 160) % Free Protein S Antigen (65 - 160) % Factor V Leiden Mutat (Negative) Factor V Leiden Interp Fact V Leiden Review By POC Sodium (137-144) mmol/L Sodium (136-145) meq/L POC Potassium (3.6-5.0) mmol/L Potassium (3.5-5.1) meq/L POC Chloride (102-111) mmol/L Chloride (98-107) meq/L Carbon Dioxide (21.0-32.0) meq/L Anion Gap (5-15) meq/L POC BUN (5-21) mg/dL BUN (7-18) mg/dL Creatinine (0.60-1.30) mg/dL POC Creatinine (0.6-1.3) mg/dL Estimated GFR (>89) mL/min POC Glucose 291 H 220 H (68-110) mg/dL Random Glucose (74-106) mg/dL Hemoglobin A1c (4.3-6.0) % Calcium (8.5-10.1) mg/dL Phosphorus (2.5-4.9) mg/dL Magnesium (1.5-2.5) mg/dL Total Bilirubin (0.2-1.0) mg/dL AST (15-37) U/L ALT (12-78) U/L Alkaline Phosphatase (45-117) U/L Total Creatine Kinase (39-308) U/L Troponin I (0.02-0.05) ng/mL Total Protein (6.4-8.2) g/dL Albumin (3.4-5.0) g/dL Triglycerides (42-150) mg/dL Cholesterol (120-200) mg/dL LDL Cholesterol, Calc (0-99) mg/dL HDL Cholesterol (40.0-60.0) mg/dL Cholesterol/HDL Ratio Ratio TSH (0.358-3.740) uIU/mL Free T4 (0.76-1.46) ng/dL Urine Color (Yellw/Straw) Urine Clarity (Clear) Urine pH (5.0-8.5) Ur Specific [place] (1.002-1.035) Urine Protein (Neg-Trace) mg/dL Urine Glucose (UA) (Negative) mg/dL Urine Ketones (Negative) mg/dL Urine Occult Blood (Negative) Urine Nitrate (Negative) Urine Bilirubin (Negative) Urine Urobilinogen (Less than 2) mg/dL Ur Leukocyte Esterase (Negative) Urine RBC (0-3) /hpf Urine WBC (0-5) /hpf Calcium Oxalate Crystal (None) /hpf Amorphous Sediment (None) /hpf Urine Bacteria (None) /hpf Hyaline Casts (0-3) /lpf Urine Mucus (Occasional) /lpf Micro UA Comment Ur Microscopic Review Urine Culture Comments Urine Opiates Screen (Neg) Ur Barbiturates Screen (Neg) Ur Amphetamines Screen (Neg) U Benzodiazepines Scrn (Neg) Urine Cocaine Screen (Neg) U Cannabinoids Screen (Neg) Serum Alcohol (0-5) mg/dL Anti-Cardiolipin IgG Ab GPL Anti-Cardiolipin IgM Ab MPL Prothrombin [id number] Mut Blood Type Blood Type Recheck Antibody Screen Imaging Data Radiologist's impression: Head CT 07/27/18 04:38 CONCLUSION: No acute findings Report was called by [Keyana Mattson at 0454 hours ] Head CTA 07/27/18 04:38 CONCLUSION: No acute ione of [place] vascular findings. Report was called by [Keyana Mattson at 0513 hours Neck CTA 07/27/18 04:38 CONCLUSION: Negative CTA Carotid. Head MRI 07/27/18 06:02 CONCLUSION: 1. Periventricular white matter signal abnormalities on the FLAIR weighted images which are nonspecific. This could be related to a demyelinating disorder or chronic small vessel ischemic change. 2. Old lacunar infarct in the right basal ganglia and [place]. There is no restricted diffusion. Discharge Plan Discharge Disposition Patient Disposition: [facility] Re[facility] Inpatient Discharge Condition Condition: Stable Discharge Order Discharge Orders: Discharge Order (Routine); Ordered 07/30/18 Ordered By: [place] Garza Discharge Details Anticipated Discharge Date: 07/30/18 Diagnosis: CVA (cerebral vascular accident) Physicians Team ED Provider: Carson Powell Primary Care Provider: Primary Care Bridgette Ni Attending Provider: Bret Hicks Other Providers: Gaston Anton ; Aurea Escoto Discharge Interventions Interventions: ED Discharge Assessment Last Done: 07/27/18 07:48 Vital Signs Last Done: 07/27/18 07:00 Status ED Status: Left Department Discharge Information Discharge Date/Time: 07/30/18 13:02
[2018-07-27 04:53] LABS: Baso # (Auto) 0.1 th/mm3 (0.0-0.2); Baso % (Auto) 0.7 % (0.0-2.0); Eos # (Auto) 0.1 th/mm3 (0.0-0.4); Eos % (Auto) 0.7 % (0.0-4.0); Hematocrit 50.4 % (39.0-51.0); Hemoglobin 17.2 gm/dL (13.0-17.0); Lymph # (Auto) 2.5 th/mm3 (1.0-4.8); Lymph % (Auto) 19.3 % (9.0-44.0); Mean Corpuscular HGB Conc 34.2 % (32.0-36.0); Mean Corpuscular Hemoglobin 29.2 pg (27.0-34.0); Mean Corpuscular Volume 85.5 fL (80.0-100.0); Mean Platelet Volume 9.1 fL (7.0-11.0); Mono # (Auto) 0.6 th/mm3 (0.0-0.9); Mono % (Auto) 4.9 % (0.0-8.0); Neut # (Auto) 9.5 th/mm3 (1.8-7.7); Neut % (Auto) 74.4 % (16.0-70.0); Platelet Count 274 th/mm3 (150-450); Red Blood Count 5.89 mil/mm3 (4.50-5.90); Red Cell Distribution Width 13.5 % (11.6-17.2); White Blood Count 12.7 th/mm3 (4.0-11.0)
--- NOTE | 2018-07-27 04:58 | CT ---
EXAM DATE: 07/27/2018 4:51 AM EST AGE/SEX: 53 years / Male INDICATIONS: Stroke Alert. Right sided weakness. CLINICAL DATA: This is the patient's initial encounter. Patient reports that signs and symptoms have been present for 1 day and indicates a pain score of 0/10. MEDICAL/SURGICAL HISTORY: Diabetes mellitus type II. Hypertension. None. RADIATION DOSE: 40.90 CTDI (mGy) COMPARISON: No prior exams available for comparison. TECHNIQUE: CT of the head without contrast. Using automated exposure control and adjustment of the mA and/or kV according to patient size, radiation dose was kept as low as reasonably achievable to ob tain optimal diagnostic quality images. DICOM format image data is available electronically for revi ew and comparison. FINDINGS: Tiny bilateral remote age basal ganglia lacunar infarcts. Small white matter lacune adjacent to the r ight trigone which also appears old. No evidence of intracranial hemorrhage or mass. Nothing to sugge st acute infarction. Extracranial structures are benign and intact. CONCLUSION: No acute findings Report was called by [Keyana to Dr. Mattson at 0454 hours ] Electronically signed by: Neil Ridley MD 07/27/2018 4:56 AM EST
[2018-07-27 05:06] LABS: Activated Partial Thrombo Time 28.2 sec (23.4-31.7)
[2018-07-27] MEDS ORDERED: hydrALAZINE HCl Inj 20 MG/ML Vial IV.PUSH ONE (05:10)
--- NOTE | 2018-07-27 05:15 | CT ---
EXAM DATE: 07/27/2018 5:10 AM EST AGE/SEX: 53 years / Male INDICATIONS: Stroke Alert. Right sided weakness. CLINICAL DATA: This is the patient's initial encounter. Patient reports that signs and symptoms have been present for 1 day and indicates a pain score of 0/10. MEDICAL/SURGICAL HISTORY: Diabetes mellitus type II. Hypertension. None. RADIATION DOSE: 28.74 CTDI (mGy) ; Combined studies COMPARISON: [facility] [place], CT HEAD W/O CONTRAST, 07/27/2018. . TECHNIQUE: Volumetric scanning was performed using a multi-row detector CT scanner during bolus infu alisa of 70 ml Visipaque 320 (iodixanol) nonionic water-soluble contrast as a cumulative dose for mul tiple exams. The data was post processed with a variety of visualization algorithms including full volume maximum intensity projection, multi-planar sliding thin slab reformation, curved planar reform ation, and surface rendering techniques. Using automated exposure control and adjustment of the mA a nd/or kV according to patient size, radiation dose was kept as low as reasonably achievable to obtain optimal diagnostic quality images. DICOM format image data is available electronically for review a nd comparison. FINDINGS: There is excellent visualization of the major intracranial arteries out to the second-order branch ve ssels. There is no evidence for aneurysm, vessel truncation or stenosis, and no evidence for vascula r malformation. CONCLUSION: No acute [place] vascular findings. Report was called by Karla Mattson at 0513 hours Electronically signed by: Neil Ridley MD 07/27/2018 5:13 AM EST
--- NOTE | 2018-07-27 05:27 | CT ---
EXAM DATE: 07/27/2018 5:22 AM EST AGE/SEX: 53 years / Male INDICATIONS: Stroke Alert. Right sided weakness. CLINICAL DATA: This is the patient's initial encounter. Patient reports that signs and symptoms have been present for 1 day and indicates a pain score of 0/10. MEDICAL/SURGICAL HISTORY: Diabetes mellitus type II. Hypertension. None. RADIATION DOSE: 28.74 CTDI (mGy) ; Combined studies COMPARISON: No prior exams available for comparison. TECHNIQUE: Volumetric scanning was performed using a multirow detector CT scanner during bolus infus ion of 70 ml Visipaque 320 (iodixanol) nonionic water-soluble contrast as a cumulative dose for mult iple exams. The data was postprocessed with a variety of visualization algorithms including full-vo lume maximum intensity projection, multiplanar sliding thin-slab reformation, curved-planar reformati on, and surface-rendering techniques. Using automated exposure control and adjustment of the mA and/ or kV according to patient size, radiation dose was kept as low as reasonably achievable to obtain op timal diagnostic quality images. DICOM format image data is available electronically for review and comparison. Percent stenosis is calculated using the diameter of the stenotic region over the diameter of the nor mal distal internal carotid artery. FINDINGS: Aortic Arch: There is a three-vessel origin of the great vessels from the aorta. No evidence of ost ial narrowing Right Carotid: The common carotid artery is intact. The carotid bulb has a normal configuration wit hout ulceration or narrowing. The internal carotid artery lumen is smooth without stenosis. The ext ernal carotid artery is intact. Left Carotid: The common carotid artery is intact. The carotid bulb has a normal configuration with out ulceration or narrowing. The internal carotid artery lumen is smooth without stenosis. The exte rnal carotid artery is intact. Vertebrals: The vertebral arteries have a symmetric diameter. No stenotic lesions are seen. 16mm nodule in the left lobe of the thyroid CONCLUSION: Negative CTA Carotid. Electronically signed by: Neil Ridley MD 07/27/2018 5:25 AM EST
[2018-07-27 05:43] LABS: Alanine Aminotransferase 48 U/L (12-78); Albumin 3.8 g/dL (3.4-5.0); Anion Gap 12 meq/L (5-15); Aspartate Aminotransferase 19 U/L (15-37); Blood Urea Nitrogen 11 mg/dL (7-18); Calcium 8.2 mg/dL (8.5-10.1); Carbon Dioxide 23.8 meq/L (21.0-32.0); Chloride 101 meq/L (98-107); Glomerular Filtration Rate 88 mL/min (>89); Glucose,Random 291 mg/dL (74-106); Sodium 137 meq/L (136-145)
[2018-07-27 05:46] LABS: Alkaline Phosphatase 184 U/L (45-117); Total Protein 7.9 g/dL (6.4-8.2)
[2018-07-27 05:48] LABS: Creatine Kinase 85 U/L (39-308)
[2018-07-27] MEDS ORDERED: Dextrose 50% in Water 50 ML Vial IV.PUSH PRN ×2 (05:54→06:00)
[2018-07-27] MEDS ORDERED: Metoprolol Inj 5 MG/5 ML Vial IV.PUSH ONE (06:12)
--- NOTE | 2018-07-27 07:57 | ECG ---
Date Performed: 07/27/2018 Time Performed: 04:36:51 PTAGE: 53 years EKG: SINUS TACHYCARDIA POSSIBLE LEFT ATRIAL ENLARGEMENT SEPTAL MYOCARDIAL INFARCTION ABNORMAL EC G NO PREVIOUS TRACING DOCTOR: Jeff Canada Interpretating Date/Time 07/27/2018 07:55:20
[2018-07-27] MEDS ORDERED: hydrALAZINE 25 MG Tablet PO PRN (09:54)
[2018-07-27] MEDS: Insulin NovoLOG Aspart Correctional Sugar Inj SQ SCH ×4 (10:05→20:10)
--- NOTE | 2018-07-27 10:12 | P.HPIM ---
History of Present Illness Service: [facility] Primary Care Physician: No Primary Care Physician Chief Complaint: LEFT SIDE FLACCID AND LEFT FACIAL DROOP History of Present Illness: Patient is a 53-year-old male who presented to the emergency department symptoms of left facial droop and slurred speech around midnight. Patient was then brought to the hospital for further evaluation. Not moving his left upper extremity well and left lower extremity well and had some left facial droop. Patient had a CAT scan of the head which showed tiny bilateral remote H basal ganglia lacunar infarcts. Small white matter lacunar adjacent to the right trigone which also appears old no evidence of intracranial hemorrhage or mass nothing to suggest acute infarction extracranial structures are benign and intact His head CTA showed no acute cervical Ricketts vascular findings Neck CTA was negative for CTA carotid Neurology will be consulted and patient will be admitted. Still has very uncontrolled blood pressure at this may be secondary to his medical noncompliance with medication Patient's past medical history is significant for diabetes and hypertension but he has not been taking any medications lately and is not following up with her primary care physician Family history is positive for myocardial infarctions as well as hypertension and diabetes in his family Patient works here as a corporate security manager Inpatient Certification: I certify that the inpatient services were ordered in accordance with Medicare regulations governing the order. This includes certification that hospital inpatient services are reasonable and necessary and in the case of services not specified as inpatient-only under 42 CFR 419.22(n), that they are appropriately provided as inpatient services in accordance to with the 2-midnight benchmark under 43 CFR 412.3(e) Estimated Total Length of Stay (Days): 2 Plans for Post Hospital Care: Not yet determined Review of Systems All other systems reviewed negative except as stated in HPI [facility] - History History Provided By: Patient - Medical History Medical History: Medical History (Last Updated 07/27/18 @ 09:58 by Nirmal Diaz DO) Diabetes Hypertension Non-compliant behavior - Surgical History Surgical History: Surgical History (Last Updated 07/27/18 @ 09:58 by Nirmal Diaz DO) No history of previous surgery - Family History Family History: Family History (Last Updated 07/27/18 @ 09:58 by Nirmal Diaz DO) Other Family history of acute myocardial infarction Family history of diabetes mellitus Family history of hypertension - Social History I have reviewed the patient's Social History: Yes - Tobacco History Second Hand Smoke Exposure: No Tobacco Use In Past 30 Days: No Smoking Status: Former smoker - Alcohol History How Often Do You Have a Drink Containing Alcohol: Monthly or less - Substance Use History Substance History: No History of Abuse - Travel History History of Recent Travel: No Recent Travel in the [place] Within the Last 8 Weeks: No Recent Travel Out of the Country Within the Last 8 Weeks: No - Immunization History Tetanus Immunization: >5 Years Medications and Allergies Active Medications: Active Medications Aspirin (Ecotrin) 81 mg PO DAILY [facility] Last Admin: 07/27/18 09:48 Dose: 81 mg Clopidogrel Bisulfate (Plavix) 75 mg PO DAILY [facility] Dextrose (D50w Vial) 50 ml IV.PUSH UNSCH PRN PRN Reason: PER HYPOGLYCEMIA PROTOCOL Glucagon (Glucagon Inj) 1 mg OTHER UNSCH PRN PRN Reason: for Hypoglycemia Protocol Sodium Chloride (Ns Inj) 1,000 mls @ 70 mls/hr IV.CONT .[id number] [facility] Stop: 07/27/18 19:02 Last Admin: 07/27/18 05:30 Dose: 70 mls/hr Insulin Aspart (Novolog Insulin Correctional Sugar Inj) 0 unit SQ ACHS [facility]; Protocol Sodium Chloride (Ns Flush) 2 ml IV.FLUSH BID [facility] Last Admin: 07/27/18 09:48 Dose: 2 ml Sodium Chloride (Ns Flush) 2 ml IV.FLUSH PRN PRN PRN Reason: FLUSH AFTER USING IV ACCESS Allergies Allergy/AdvReac Type Severity Reaction Status Date / Time penicillin G Allergy Intermediate rash Verified 07/27/18 05:14 Home Medications Medication Instructions Recorded Confirmed Type aspirin 81 mg PO DAILY 07/27/18 07/27/18 History lisinopril 20 mg PO DAILY 07/27/18 07/27/18 History Exam Vital signs: Vital Signs 07/27/18 04:38 07/27/18 04:44 07/27/18 05:05 Temperature 98.9 F Pulse Rate 106 H 103 H Respiratory Rate 18 18 Blood Pressure 221/107 H 249/113 H Pulse Oximetry 98 98 99 07/27/18 05:32 07/27/18 06:04 07/27/18 06:30 Temperature Pulse Rate 95 H 92 H 97 H Respiratory Rate 18 18 Blood Pressure 213/96 H 212/91 H 222/99 H Pulse Oximetry 98 98 97 07/27/18 07:00 Temperature Pulse Rate 92 H Respiratory Rate 18 Blood Pressure 228/93 H Pulse Oximetry 98 Intake & Output 07/26/18 07/27/18 07/27/18 18:59 06:59 18:59 Weight 109.6 kg Narrative: GENERAL: Awake alert oriented x3 talkative and cooperative SKIN: Warm and dry. HEAD: Atraumatic. Normocephalic. EYES: Pupils equal and round. No scleral icterus. No injection or drainage. EOMI ENT: No nasal bleeding or discharge. Mucous membranes pink and moist. Tongue deviates to the left side oral mucosa is moist NECK: Trachea midline. No JVD. Supple CARDIOVASCULAR: Regular rate and rhythm. S1-S2 no S3 or S4 RESPIRATORY: No accessory muscle use. Clear to auscultation. Breath sounds equal bilaterally. GASTROINTESTINAL: Abdomen soft, non-tender, nondistended. Hepatic and splenic margins not palpable. Obese MUSCULOSKELETAL: Extremities without clubbing, cyanosis, or edema. No obvious deformities. Left upper extremity weakness and decreased mobility and left lower extremity weakness and decreased mobility NEUROLOGICAL: Awake and alert. No obvious cranial nerve deficits. Motor grossly within normal limits. Five out of 5 muscle strength in the arms and legs on the right. 3-4 out of 5 on the left upper extremity and 3 out of 5 on the left lower extreme normal speech. PSYCHIATRIC: Appropriate mood and affect; insight and judgment normal. Results - Labs CBC & Chem 7: 07/27/18 04:41 07/27/18 04:41 Labs: Short CBC 07/27/18 Range/Units 04:41 WBC 12.7 H (4.0-11.0) th/mm3 Hgb 17.2 H (13.0-17.0) gm/dL Hct 50.4 (39.0-51.0) % Plt Count 274 (150-450) th/mm3 BMP 07/27/18 04:41 Sodium 137 Potassium 4.0 Chloride 101 Carbon Dioxide 23.8 BUN 11 Creatinine 0.90 Calcium 8.2 L Cardiac Enzymes 07/27/18 Range/Units 04:41 Total Creatine Kinase 85 (39-308) U/L Troponin I Less than 0.02 L (0.02-0.05) ng/mL Liver Function 07/27/18 Range/Units 04:41 Total Bilirubin 0.4 (0.2-1.0) mg/dL AST 19 (15-37) U/L ALT 48 (12-78) U/L Alkaline Phosphatase 184 H (45-117) U/L Albumin 3.8 (3.4-5.0) g/dL - Imaging Impressions Head CT 07/27/18 04:38 CONCLUSION: No acute findings Report was called by [Keyana to Dr. Mattson at 0454 hours ] Head CTA 07/27/18 04:38 CONCLUSION: No acute white earth of Ricketts vascular findings. Report was called by [Keyana Mattson at 0513 hours Neck CTA 07/27/18 04:38 CONCLUSION: Negative CTA Carotid. Caprini VTE Risk Assessment Caprini VTE Risk Assessment: Moderate/High Risk (score >= 2) Caprini Risk Assessment Model: Point Value = 1 Point Value = 2 Point Value = 3 Point Value = 5 Age 41-60 Minor surgery BMI > 25 kg/m2 Swollen legs Varicose veins or History of unexplained or recurrent spontaneous Oral contraceptives or hormone replacement Sepsis (< 1 month) Serious lung disease, including pneumonia (< 1 month) Abnormal pulmonary function Acute myocardial infarction Congestive heart failure (< 1 month) History of inflammatory bowel disease Medical patient at bed rest Age 61-74 Arthroscopic surgery Major open surgery (> 45 min) Laparoscopic surgery (> 45 min) Malignancy Confined to bed (> 72 hours) Immobilizing plaster cast Central venous access Age >= 75 History of VTE Family history of VTE Factor V Leiden Prothrombin [id number] Lupus anticoagulant Anticardiolipin antibodies Elevated serum homocysteine Heparin-induced thrombocytopenia Other congenital or acquired thrombophilia Stroke (< 1 month) Elective arthroplasty Hip, pelvis, or leg fracture Acute spinal cord injury (< 1 month) Prophylaxis Regimen: Total Risk Factor Score Risk Level Prophylaxis Regimen 0-1 Low Early ambulation 2 Moderate Order ONE of the following: *Sequential Compression Device (SCD) *Heparin 5000 units SQ BID 3-4 Higher Order ONE of the following medications: *Heparin 5000 units SQ TID *Enoxaparin/Lovenox 40 mg SQ daily (WT < 150 kg, CrCl > 30 mL/min) *Enoxaparin/Lovenox 30 mg SQ daily (WT < 150 kg, CrCl > 10-29 mL/min) *Enoxaparin/Lovenox 30 mg SQ BID (WT < 150 kg, CrCl > 30 mL/min) AND/OR *Sequential Compression Device (SCD) 5 or more Highest Order ONE of the following medications: *Heparin 5000 units SQ TID (Preferred with Epidurals) *Enoxaparin/Lovenox 40 mg SQ daily (WT < 150 kg, CrCl > 30 mL/min) *Enoxaparin/Lovenox 30 mg SQ daily (WT < 150 kg, CrCl > 10-29 mL/min) *Enoxaparin/Lovenox 30 mg SQ BID (WT < 150 kg, CrCl > 30 mL/min) AND *Sequential Compression Device (SCD) Assessment and Plan - Plan Acute CVA with left upper extremity weakness and left lower extremity weakness -Not showing on CAT scan we will get MRIs -Consult neurology -Aspirin daily we will add Plavix -PT and OT and speech therapy to eval and treat -Resume home medications try and keep systolic blood pressure under 180 -Start a statin Hypertension resume home medications Diabetes sliding scale coverage and Accu-Cheks before meals and at bedtime Noncompliance recommend that patient take his medications when he leaves the hospital History of tobacco abuse currently not smoking LEFT THYROID NODULE- MAY NEED BIOPSY IN FUTURE- CHECK TSH AND FREE T4 DVT prophylaxis GI prophylaxis with Pepcid PT and OT and speech therapy to evaluate and treat Code Status: Full code Discussed Condition With: RN and patient Discharge Planning: Once cleared by neurology and moving better
--- NOTE | 2018-07-27 10:59 | MB ---
cc: Juaquin Mattson MD, PhD DATE: 07/27/2018 REASON FOR CONSULTATION: Stroke alert. HISTORY OF PRESENT ILLNESS: Mr. Gonzalez is a 53-year-old man who has a history of hypertension, borderline diabetes. He has a history of TIA a year or 2 ago. Yesterday, he suddenly developed left-sided weakness and slurred speech. He is unclear as to the exact time, he thinks it was around midnight. I spoke with the ER yesterday, presented later in the morning around 5 a.m. He had an NIH stroke scale of 6. Initial CT brain was unremarkable. The patient was very hypertensive with a blood pressure of 221/107. Head CT showed no acute changes. There were very small bilateral remote basal ganglia lacunar infarctions, small white matter lacune in the right trigone. No hemorrhage is identified. I discussed the case with Dr. Powell. Due to the time factor, he was out of the window for TPA, even the 4-1/2 hour window, he was beyond that time. Therefore, we elected to proceed with CT angiography to assess as to whether or not there was a large vessel occlusion that could be amenable to thrombus extraction. A CTA was accomplished. CTA of the neck was negative. Carotid arteries were within normal limits. CT angiogram of the brain within normal limits. There was no evidence of large vessel occlusion. Therefore, he was not a candidate for intervention. The patient reports some improvement in his left arm strength, but still very weak in the left leg and some improvement in the dysarthria as well. PAST MEDICAL HISTORY: He has a history of hypertension, history of borderline diabetes. MEDICATIONS: He takes aspirin 81 mg daily. He was on metformin and some type of antihypertensive but has not been taking those medications. NEUROLOGICAL EXAMINATION: VITAL SIGNS: Blood pressure currently is 176/85, pulse is 95. He is in sinus rhythm. HIGHER CORTICAL FUNCTION: Speech dysarthric, but not aphasic. CRANIAL NERVES: He has had a left upper motor neuron 7 palsy. Other cranial nerves are completely normal. MOTOR EXAM: He is about 4/5 in strength in the left arm proximally and distally with limited fine motor skills left hand. He is about 3/5, left lower extremity strength. Right leg and right arm are normal in strength. Cerebral testing normal. Reflexes are 2+ symmetric. IMAGING STUDIES: As noted above. LABORATORY DATA: White count 12,700, hemoglobin 17.2, hematocrit 51%, platelets 274,000. PT 10, INR 1, aPTT 28.2. Sodium is 136, potassium is 4, chloride 100, CO2 of 23.8, BUN is 10, creatinine 0.9, glucose 299, AST 19, ALT is 48. Tox screen: alcohol less than 3. IMPRESSION: 1. Probable right hemisphere stroke. 2. Hypertension. 3. Probable diabetes. RECOMMENDATIONS: As noted above, the patient was not a TPA candidate as he was out of the 4-1/2 hour window. Also not a candidate for intervention due to negative CT of the brain. We will recommend adding Plavix 75 mg daily to the aspirin 81 mg daily. Further evaluation with an MRI of the brain, echocardiogram. Continue to monitor cardiac telemetry, rule out atrial fibrillation. Echocardiogram. Also check a lipid panel. We will allow permissive hypertension for the next 2 days, treating blood pressure if he gets over 210/110. Thank you for asking me to see this patient in consultation. Juaquin Mattson MD, PhD [facility]/brandon , 09:16 AM , 09:24 AM
[2018-07-27] MEDS ORDERED: hydrALAZINE HCl Inj 20 MG/ML Vial IV.PUSH PRN (11:00)
[2018-07-27] MEDS ORDERED: hydrALAZINE 25 MG Tablet PO SCH (14:00)
--- NOTE | 2018-07-27 14:17 | MR ---
EXAM DATE: 07/27/2018 2:02 PM EST AGE/SEX: 53 years / Male INDICATIONS: . Slurred speech with left sided facial droop. CLINICAL DATA: This is the patient's initial encounter. Patient reports that signs and symptoms have been present for 1 day and indicates a pain score of 0/10. MEDICAL/SURGICAL HISTORY: Hypertension. Diabetes mellitus type II. Myocardial infarction. Иван endectomy. Cholecystectomy. hernia COMPARISON: [facility] [place], CT HEAD W/O CONTRAST, 07/27/2018. . TECHNIQUE: Multiplanar, multisequence examination of the brain was performed without contrast. FINDINGS: Cerebrum: The ventricles are normal for age. No evidence of midline shift, mass lesion, hemorrhage or acute infarction. There is an old lacunar infarct in the right basal ganglia. There is a small old lacunar infarct in the perry as well. No extraaxial fluid collections are seen. The pituitary gland and suprasellar cistern are normal in configuration. White Matter: On the FLAIR weighted images there are multiple small punctate areas of increased sign al in the periventricular white matter Posterior Fossa: The cerebellum and brainstem are intact. The 4th ventricle is midline. The cerebel lopontine angle is unremarkable. The cerebellar tonsils are normal in position. Diffusion Imaging: No focal areas of restricted diffusion are seen. No evidence of acute infarction . Extracranial: The visualized portions of the orbits and paranasal sinuses are unremarkable. CONCLUSION: 1. Periventricular white matter signal abnormalities on the FLAIR weighted images which are nonspeci fic. This could be related to a demyelinating disorder or chronic small vessel ischemic change. 2. Old lacunar infarct in the right basal ganglia and perry. There is no restricted diffusion. Electronically signed by: Alo Geiger MD 07/27/2018 2:16 PM EST
--- NOTE | 2018-07-27 15:38 | ECHRPT ---
Indication: cva/tia CONCLUSIONS The left ventricular systolic function is low normal with an estimated ejection fraction in the rang e of 50- 55%. Mild concentric left ventricular hypertrophy. Normal left ventricular size. Trace mitral valve regurgitation. There is trace tricuspid valve regurgitation. The estimated pulmonary arterial pressure is 14 mmHg. BP: / HR: Rhythm: MEASUREMENTS (Male / Female) Normal Values Technical Quality: 2D ECHO LV Diastolic Diameter PLAX 4.6 cm 4.2 - 5.9 / 3.9 - 5.3 cm LV Systolic Diameter PLAX 3.7 cm IVS Diastolic Thickness 1.4 cm 0.6 - 1.0 / 0.6 - 0.9 cm LVPW Diastolic Thickness 1.5 cm 0.6 - 1.0 / 0.6 - 0.9 cm LV Relative Wall Thickness 0.6 RV Internal Dim ED PLAX 2.7 cm LVOT Diameter 2.0 cm Aortic Root Diameter 2.5 cm LA Systolic Diameter LX 2.8 cm 3.0 - 4.0 / 2.7 - 3.8 cm LV Ejection Fraction MOD BP 44.7 % >= 55 % LV Ejection Fraction MOD 4C 47.6 % LV Ejection Fraction 4C AL 48.5 % LV Ejection Fraction MOD 2C 40.9 % LV Ejection Fraction 2C AL 42.6 % DOPPLER AV Peak Velocity 174.0 cm/s AV Peak Gradient 12.1 mmHg LVOT Peak Velocity 94.3 cm/s LVOT Peak Gradient 3.6 mmHg AV Area Cont Eq pk 1.7 cm Mitral E Point Velocity 80.0 cm/s Mitral A Point Velocity 103.0 cm/s Mitral E to A Ratio 0.8 LV E' Lateral Velocity 4.3 cm/s Mitral E to LV E' Lateral Ratio 18.6 LV E' Septal Velocity 4.4 cm/s Mitral E to LV E' Septal Ratio 18.2 TR Peak Velocity 103.0 cm/s TR Peak Gradient 4.2 mmHg Right Atrial Pressure 10.0 mmHg Pulmonary Artery Systolic Pressu 14.2 mmHg Right Ventricular Systolic Press 14.2 mmHg PV Peak Velocity 103.0 cm/s PV Peak Gradient 4.2 mmHg FINDINGS LEFT VENTRICLE The left ventricular systolic function is low normal with an estimated ejection fraction in the rang e of 50- 55%. Mild concentric left ventricular hypertrophy. Normal left ventricular size. RIGHT VENTRICLE Normal right ventricular size and systolic function. LEFT ATRIUM The left atrial size is normal. RIGHT ATRIUM The right atrial size is normal. ATRIAL SEPTUM Normal atrial septal thickness without atrial level shunting by limited color doppler interrogation. AORTA The aortic root and proximal ascending aorta are normal in size on limited imaging. MITRAL VALVE Trace mitral valve regurgitation. AORTIC VALVE Trileaflet aortic valve. No aortic valve stenosis or regurgitation. TRICUSPID VALVE There is trace tricuspid valve regurgitation. The estimated pulmonary arterial pressure is 14 mmHg. PULMONARY VALVE No pulmonary valve regurgitation or stenosis. VESSELS The inferior vena cava is normal in size. PERICARDIUM No pericardial effusion. Daniel Garcia MD (Electronically Signed) Final Date:27 July 2018 15:37
[2018-07-27 15:53] LABS: Hemoglobin A1c 10.4 % (4.3-6.0)
[2018-07-27] MEDS: hydrALAZINE 25 MG Tablet PO SCH ×2 (17:06→23:07)
[2018-07-27] MEDS: amLODIPine 5 MG Tablet PO SCH (18:30)
[2018-07-27] MEDS: Famotidine 20 MG Tablet PO SCH (20:09)
[2018-07-27] MEDS: hydrALAZINE HCl Inj 20 MG/ML Vial IV.PUSH PRN (20:10)
[2018-07-28 07:10] LABS: Alanine Aminotransferase 43 U/L (12-78); Albumin 3.3 g/dL (3.4-5.0); Anion Gap 8 meq/L (5-15); Aspartate Aminotransferase 28 U/L (15-37); Blood Urea Nitrogen 9 mg/dL (7-18); Calcium 8.4 mg/dL (8.5-10.1); Carbon Dioxide 25.3 meq/L (21.0-32.0); Chloride 105 meq/L (98-107); Glomerular Filtration Rate Greater Than 89 mL/min (>89); Glucose,Random 207 mg/dL (74-106); Potassium 3.9 meq/L (3.5-5.1); Sodium 138 meq/L (136-145)
[2018-07-28 07:11] LABS: Cholesterol 187 mg/dL (120-200); Phosphorus 2.4 mg/dL (2.5-4.9); Triglycerides 549 mg/dL (42-150)
[2018-07-28 07:12] LABS: Baso % (Auto) 0.2 % (0.0-2.0); Eos # (Auto) 0.1 th/mm3 (0.0-0.4); Eos % (Auto) 0.7 % (0.0-4.0); Hematocrit 47.6 % (39.0-51.0); Hemoglobin 16.8 gm/dL (13.0-17.0); Lymph # (Auto) 1.5 th/mm3 (1.0-4.8); Lymph % (Auto) 13.1 % (9.0-44.0); Mean Corpuscular HGB Conc 35.3 % (32.0-36.0); Mean Corpuscular Hemoglobin 29.8 pg (27.0-34.0); Mean Corpuscular Volume 84.6 fL (80.0-100.0); Mean Platelet Volume 9.3 fL (7.0-11.0); Mono # (Auto) 0.7 th/mm3 (0.0-0.9); Mono % (Auto) 6.2 % (0.0-8.0); Neut # (Auto) 9.3 th/mm3 (1.8-7.7); Neut % (Auto) 79.8 % (16.0-70.0); Platelet Count 275 th/mm3 (150-450); Red Blood Count 5.63 mil/mm3 (4.50-5.90); Red Cell Distribution Width 13.5 % (11.6-17.2); White Blood Count 11.7 th/mm3 (4.0-11.0)
[2018-07-28 07:14] LABS: Alkaline Phosphatase 127 U/L (45-117); Chol/HDL Ratio 6.56 Ratio; HDL Cholesterol 28.5 mg/dL (40.0-60.0); Total Protein 7.2 g/dL (6.4-8.2)
[2018-07-28] MEDS: amLODIPine 5 MG Tablet PO SCH (08:17)
[2018-07-28] MEDS: hydrALAZINE 25 MG Tablet PO SCH ×2 (08:17→16:20)
[2018-07-28] MEDS: Famotidine 20 MG Tablet PO SCH ×2 (08:17→21:44)
[2018-07-28] MEDS: Lisinopril 20 MG Tablet PO SCH (08:18)
[2018-07-28] MEDS: Insulin NovoLOG Aspart Correctional Sugar Inj SQ SCH ×4 (08:43→21:45)
--- NOTE | 2018-07-28 12:26 | P.PNIM ---
Subjective Interval history: Chief Complaint: LEFT SIDE FLACCID AND LEFT FACIAL DROOP History of Present Illness: Patient is a 53-year-old male who presented to the emergency department symptoms of left facial droop and slurred speech around midnight. Patient was then brought to the hospital for further evaluation. Not moving his left upper extremity well and left lower extremity well and had some left facial droop. Patient had a CAT scan of the head which showed tiny bilateral remote H basal ganglia lacunar infarcts. Small white matter lacunar adjacent to the right trigone which also appears old no evidence of intracranial hemorrhage or mass nothing to suggest acute infarction extracranial structures are benign and intact His head CTA showed no acute cervical Ricketts vascular findings Neck CTA was negative for CTA carotid Neurology will be consulted and patient will be admitted. Still has very uncontrolled blood pressure at this may be secondary to his medical noncompliance with medication Patient's past medical history is significant for diabetes and hypertension but he has not been taking any medications lately and is not following up with her primary care physician Family history is positive for myocardial infarctions as well as hypertension and diabetes in his family Patient works here as a computer security coordinator 11 HAD MRI LEFT HAND MORE MOBILE THAN YESTERDAY [employer] RN AND PT AND CM FMLA PAPERWORK AND OTHER PAPERWORK SIGNED AM LABS KEEP ICU TODAY Physical Exam Vital signs: Vital Signs 07/27/18 12:30 07/27/18 12:45 07/27/18 13:00 Temperature Pulse Rate 91 H 91 H 90 Respiratory Rate 26 H 21 22 Blood Pressure 172/84 H 206/110 H Pulse Oximetry 98 96 97 07/27/18 13:27 07/27/18 13:40 07/27/18 14:05 Temperature Pulse Rate 92 H 100 H Respiratory Rate 24 28 H Blood Pressure 204/91 H 222/98 H Pulse Oximetry 97 97 07/27/18 14:06 07/27/18 15:00 07/27/18 15:22 Temperature Pulse Rate 96 H 97 H 101 H Respiratory Rate 11 L 24 26 H Blood Pressure 183/79 H Pulse Oximetry 98 97 99 07/27/18 16:00 07/27/18 16:37 07/27/18 16:55 Temperature 98 F Pulse Rate 92 H 98 H Respiratory Rate 0 L 27 H Blood Pressure 243/174 H Pulse Oximetry 99 99 96 07/27/18 16:58 07/27/18 17:00 07/27/18 17:01 Temperature Pulse Rate 97 H 96 H 97 H Respiratory Rate 26 H 26 H 26 H Blood Pressure 270/132 H 230/101 H 215/92 H Pulse Oximetry 97 96 96 07/27/18 17:04 07/27/18 18:00 07/27/18 18:04 Temperature Pulse Rate 94 H 100 H 101 H Respiratory Rate 22 23 29 H Blood Pressure 217/94 H 221/96 H Pulse Oximetry 98 96 97 07/27/18 19:00 07/27/18 19:04 07/27/18 20:00 Temperature 98.1 F Pulse Rate 85 89 96 H Respiratory Rate 24 24 24 Blood Pressure 225/95 H 211/93 H Pulse Oximetry 97 96 97 07/27/18 20:04 07/27/18 20:44 07/27/18 21:00 Temperature Pulse Rate 92 H 97 H Respiratory Rate 29 H 24 Blood Pressure 211/93 H Pulse Oximetry 98 97 99 07/27/18 21:04 07/27/18 21:40 07/27/18 22:00 Temperature Pulse Rate 96 H 86 81 Respiratory Rate 35 H 17 18 Blood Pressure 206/86 H 178/76 H 180/78 H Pulse Oximetry 99 97 97 07/27/18 23:00 07/28/18 00:00 07/28/18 01:00 Temperature 98.3 F Pulse Rate 80 96 H 89 Respiratory Rate 18 21 32 H Blood Pressure 191/80 H 202/99 H 189/82 H Pulse Oximetry 98 99 96 07/28/18 02:00 07/28/18 02:02 07/28/18 03:00 Temperature Pulse Rate 85 87 82 Respiratory Rate 7 L 12 19 Blood Pressure 158/73 H 169/83 H Pulse Oximetry 97 98 97 07/28/18 04:00 07/28/18 04:01 07/28/18 05:00 Temperature 97.9 F Pulse Rate 79 81 89 Respiratory Rate 18 11 L Blood Pressure 168/81 H Pulse Oximetry 96 97 96 07/28/18 05:01 07/28/18 06:00 07/28/18 06:01 Temperature Pulse Rate 88 84 82 Respiratory Rate 8 L 20 0 L Blood Pressure 173/88 H 185/98 H Pulse Oximetry 97 96 98 07/28/18 07:00 07/28/18 07:57 07/28/18 08:00 Temperature 97.7 F Pulse Rate 94 H 90 Respiratory Rate 31 H 25 H Blood Pressure 212/100 H 226/97 H Pulse Oximetry 97 95 99 07/28/18 09:00 07/28/18 10:00 07/28/18 10:32 Temperature Pulse Rate 94 H 105 H 121 H Respiratory Rate 28 H 26 H 20 Blood Pressure 217/91 H 188/84 H 192/87 H Pulse Oximetry 97 95 97 07/28/18 11:01 Temperature Pulse Rate 104 H Respiratory Rate 19 Blood Pressure 181/90 H Pulse Oximetry 97 Intake & Output 07/27/18 07/28/18 07/28/18 18:59 06:59 18:59 Intake Total 240 / 240 120 / 120 Output Total 1400 / 1400 1200 / 1200 Balance -1160 / -1160 -1080 / -1080 Weight 108.6 kg Intake: Oral 240 / 240 120 / 120 Output: Urine 1400 / 1400 1200 / 1200 Other: # Bowel Movements 0 Narrative: GENERAL: Awake alert oriented x3 talkative and cooperative SKIN: Warm and dry. HEAD: Atraumatic. Normocephalic. EYES: Pupils equal and round. No scleral icterus. No injection or drainage. EOMI ENT: No nasal bleeding or discharge. Mucous membranes pink and moist. Tongue deviates to the left side oral mucosa is moist NECK: Trachea midline. No JVD. Supple CARDIOVASCULAR: Regular rate and rhythm. S1-S2 no S3 or S4 RESPIRATORY: No accessory muscle use. Clear to auscultation. Breath sounds equal bilaterally. GASTROINTESTINAL: Abdomen soft, non-tender, nondistended. Hepatic and splenic margins not palpable. Obese MUSCULOSKELETAL: Extremities without clubbing, cyanosis, or edema. No obvious deformities. Left upper extremity weakness and decreased mobility and left lower extremity weakness and decreased mobility NEUROLOGICAL: Awake and alert. No obvious cranial nerve deficits. Motor grossly within normal limits. Five out of 5 muscle strength in the arms and legs on the right. 3 out of 5 on the left upper extremity and 3 out of 5 on the left lower extreme normal speech. PSYCHIATRIC: Appropriate mood and affect; insight and judgment normal. Results - Labs CBC & Chem 7: 07/28/18 06:07 07/28/18 06:07 Laboratory Results - last 24 hr 07/27/18 07/27/18 07/27/18 04:41 11:29 11:29 WBC RBC Hgb Hct MCV MCH MCHC RDW Plt Count MPV Neut % (Auto) Lymph % (Auto) [place] % (Auto) Eos % (Auto) Baso % (Auto) Neut # (Auto) Lymph # (Auto) [place] # (Auto) Eos # (Auto) Baso # (Auto) WBC Differential Differential Comment Sodium Potassium Chloride Carbon Dioxide Anion Gap BUN Creatinine Estimated GFR POC Glucose Random Glucose Hemoglobin A1c 10.4 H Calcium Phosphorus Magnesium Total Bilirubin AST ALT Alkaline Phosphatase Total Protein Albumin Triglycerides Cholesterol LDL Cholesterol, Calc HDL Cholesterol Cholesterol/HDL Ratio TSH 2.200 Free T4 0.99 07/27/18 07/27/18 07/27/18 12:31 17:51 19:58 WBC RBC Hgb Hct MCV MCH MCHC RDW Plt Count MPV Neut % (Auto) Lymph % (Auto) [place] % (Auto) Eos % (Auto) Baso % (Auto) Neut # (Auto) Lymph # (Auto) [place] # (Auto) Eos # (Auto) Baso # (Auto) WBC Differential Differential Comment Sodium Potassium Chloride Carbon Dioxide Anion Gap BUN Creatinine Estimated GFR POC Glucose 209 H 223 H 213 H Random Glucose Hemoglobin A1c Calcium Phosphorus Magnesium Total Bilirubin AST ALT Alkaline Phosphatase Total Protein Albumin Triglycerides Cholesterol LDL Cholesterol, Calc HDL Cholesterol Cholesterol/HDL Ratio TSH Free T4 07/28/18 07/28/18 07/28/18 06:07 06:07 08:26 WBC 11.7 H RBC 5.63 Hgb 16.8 Hct 47.6 MCV 84.6 MCH 29.8 MCHC 35.3 RDW 13.5 Plt Count 275 MPV 9.3 Neut % (Auto) 79.8 H Lymph % (Auto) 13.1 [place] % (Auto) 6.2 Eos % (Auto) 0.7 Baso % (Auto) 0.2 Neut # (Auto) 9.3 H Lymph # (Auto) 1.5 [place] # (Auto) 0.7 Eos # (Auto) 0.1 Baso # (Auto) 0.0 WBC Differential . Differential Comment Auto diff final Sodium 138 Potassium 3.9 Chloride 105 Carbon Dioxide 25.3 Anion Gap 8 BUN 9 Creatinine 0.75 Estimated GFR Greater than 89 POC Glucose 229 H Random Glucose 207 H Hemoglobin A1c Calcium 8.4 L Phosphorus 2.4 L Magnesium 2.0 Total Bilirubin 0.7 AST 28 ALT 43 Alkaline Phosphatase 127 H Total Protein 7.2 D Albumin 3.3 L Triglycerides 549 H Cholesterol 187 LDL Cholesterol, Calc HDL Cholesterol 28.5 L Cholesterol/HDL Ratio 6.56 TSH Free T4 07/28/18 11:53 WBC RBC Hgb Hct MCV MCH MCHC RDW Plt Count MPV Neut % (Auto) Lymph % (Auto) [place] % (Auto) Eos % (Auto) Baso % (Auto) Neut # (Auto) Lymph # (Auto) [place] # (Auto) Eos # (Auto) Baso # (Auto) WBC Differential Differential Comment Sodium Potassium Chloride Carbon Dioxide Anion Gap BUN Creatinine Estimated GFR POC Glucose 302 H Random Glucose Hemoglobin A1c Calcium Phosphorus Magnesium Total Bilirubin AST ALT Alkaline Phosphatase Total Protein Albumin Triglycerides Cholesterol LDL Cholesterol, Calc HDL Cholesterol Cholesterol/HDL Ratio TSH Free T4 - Imaging Impressions Head MRI 07/27/18 06:02 CONCLUSION: 1. Periventricular white matter signal abnormalities on the FLAIR weighted images which are nonspecific. This could be related to a demyelinating disorder or chronic small vessel ischemic change. 2. Old lacunar infarct in the right basal ganglia and [place]. There is no restricted diffusion. Assessment and Plan - Plan Acute CVA with left upper extremity weakness and left lower extremity weakness- SOME IMPROVEMENT IN LEFT UE WEAKNESS AND HAND MOBILITY -Not showing on CAT scan we will get MRIs -Consult neurology -Aspirin daily we will add Plavix -PT and OT and speech therapy to eval and treat -Resume home medications try and keep systolic blood pressure under 180 -Start a statin Hypertension resume home medications- MEDICATIONS HAVE BEEN ADJUSTED Diabetes sliding scale coverage and Accu-Cheks before meals and at bedtime Noncompliance recommend that patient take his medications when he leaves the hospital History of tobacco abuse currently not smoking LEFT THYROID NODULE- MAY NEED BIOPSY IN FUTURE- CHECK TSH AND FREE T4 DVT prophylaxis GI prophylaxis with Pepcid PT and OT and speech therapy to evaluate and treat AM LABS PAPERWORK FOR FMLA ETC SIGNED Code Status: FULL CODE Discussed Condition With: RN AND PT AND CM Discharge Planning: Once cleared by neurology and moving better
[2018-07-28] MEDS: Fenofibrate 145 MG Tablet PO SCH (16:10)
--- NOTE | 2018-07-28 18:28 | P.PNNEU ---
Subjective Subjective Comments: he reports improvement in left sided strength and in speech Active Medications: Active Medications Amlodipine Besylate (Norvasc) 5 mg PO DAILY [facility] Last Admin: 07/28/18 08:17 Dose: 5 mg Aspirin (Ecotrin) 81 mg PO DAILY [facility] Last Admin: 07/28/18 08:17 Dose: 81 mg Clopidogrel Bisulfate (Plavix) 75 mg PO DAILY [facility] Last Admin: 07/28/18 08:17 Dose: 75 mg Dextrose (D50w Vial) 50 ml IV.PUSH UNSCH PRN PRN Reason: PER HYPOGLYCEMIA PROTOCOL Famotidine (Pepcid) 20 mg PO BID [facility] Last Admin: 07/28/18 08:17 Dose: 20 mg Fenofibrate (Tricor) 145 mg PO DAILY [facility] Last Admin: 07/28/18 16:10 Dose: 145 mg Glucagon (Glucagon Inj) 1 mg OTHER UNSCH PRN PRN Reason: for Hypoglycemia Protocol Hydralazine HCl (Apresoline) 50 mg PO Q8H [facility] Last Admin: 07/28/18 16:20 Dose: Not Given Hydralazine HCl (Apresoline Inj) 20 mg IV.PUSH Q6H PRN PRN Reason: SYS BP GREATER THAN 180 [facility] Last Admin: 07/27/18 20:10 Dose: 20 mg Insulin Aspart (Novolog Insulin Correctional Sugar Inj) 0 unit SQ ACHS [facility]; Protocol Last Admin: 07/28/18 12:21 Dose: 7 unit Lisinopril (Prinivil) 20 mg PO DAILY [facility] Last Admin: 07/28/18 08:18 Dose: 20 mg Sodium Chloride (Ns Flush) 2 ml IV.FLUSH BID [facility] Last Admin: 07/28/18 08:18 Dose: 2 ml Sodium Chloride (Ns Flush) 2 ml IV.FLUSH PRN PRN PRN Reason: FLUSH AFTER USING IV ACCESS Allergies/Adverse Reactions: Allergies Allergy/AdvReac Type Severity Reaction Status Date / Time penicillin G Allergy Intermediate rash Verified 07/27/18 05:14 Physical Exam Vital signs: Vital Signs 07/27/18 19:00 07/27/18 19:04 07/27/18 20:00 Temperature 98.1 F Pulse Rate 85 89 96 H Respiratory Rate 24 24 24 Blood Pressure 225/95 H 211/93 H Pulse Oximetry 97 96 97 07/27/18 20:04 07/27/18 20:44 07/27/18 21:00 Temperature Pulse Rate 92 H 97 H Respiratory Rate 29 H 24 Blood Pressure 211/93 H Pulse Oximetry 98 97 99 07/27/18 21:04 07/27/18 21:40 07/27/18 22:00 Temperature Pulse Rate 96 H 86 81 Respiratory Rate 35 H 17 18 Blood Pressure 206/86 H 178/76 H 180/78 H Pulse Oximetry 99 97 97 07/27/18 23:00 07/28/18 00:00 07/28/18 01:00 Temperature 98.3 F Pulse Rate 80 96 H 89 Respiratory Rate 18 21 32 H Blood Pressure 191/80 H 202/99 H 189/82 H Pulse Oximetry 98 99 96 07/28/18 02:00 07/28/18 02:02 07/28/18 03:00 Temperature Pulse Rate 85 87 82 Respiratory Rate 7 L 12 19 Blood Pressure 158/73 H 169/83 H Pulse Oximetry 97 98 97 07/28/18 04:00 07/28/18 04:01 07/28/18 05:00 Temperature 97.9 F Pulse Rate 79 81 89 Respiratory Rate 18 11 L Blood Pressure 168/81 H Pulse Oximetry 96 97 96 07/28/18 05:01 07/28/18 06:00 07/28/18 06:01 Temperature Pulse Rate 88 84 82 Respiratory Rate 8 L 20 0 L Blood Pressure 173/88 H 185/98 H Pulse Oximetry 97 96 98 07/28/18 07:00 07/28/18 07:57 07/28/18 08:00 Temperature 97.7 F Pulse Rate 94 H 90 Respiratory Rate 31 H 25 H Blood Pressure 212/100 H 226/97 H Pulse Oximetry 97 95 99 07/28/18 09:00 07/28/18 10:00 07/28/18 10:32 Temperature Pulse Rate 94 H 105 H 121 H Respiratory Rate 28 H 26 H 20 Blood Pressure 217/91 H 188/84 H 192/87 H Pulse Oximetry 97 95 97 07/28/18 11:01 07/28/18 12:00 07/28/18 13:00 Temperature 98.3 F Pulse Rate 104 H 97 H 94 H Respiratory Rate 19 28 H 34 H Blood Pressure 181/90 H 171/75 H 159/85 H Pulse Oximetry 97 96 97 07/28/18 14:00 07/28/18 14:01 07/28/18 15:00 Temperature Pulse Rate 111 H 111 H 101 H Respiratory Rate 30 H 23 Blood Pressure 159/86 H 162/70 H Pulse Oximetry 97 95 07/28/18 16:00 Temperature Pulse Rate 96 H Respiratory Rate Blood Pressure Pulse Oximetry Intake & Output 07/27/18 07/28/18 07/28/18 18:59 06:59 18:59 Intake Total 240 / 240 120 / 120 Output Total 1400 / 1400 1200 / 1200 Balance -1160 / -1160 -1080 / -1080 Weight 108.6 kg Intake: Oral 240 / 240 120 / 120 Output: Urine 1400 / 1400 1200 / 1200 Other: Date of Last Bowel Movement 07/28/18 # Bowel Movements 0 - Routine Neurological Exam alert, speech mildly dysarthric but improved CN--mild left upper motor neuron CN 7 palsey MOTOR 4/5 LUE and LLE Objective Laboratory Results - last 24 hr 07/27/18 07/27/18 07/28/18 04:41 19:58 06:07 WBC 11.7 H RBC 5.63 Hgb 16.8 Hct 47.6 MCV 84.6 MCH 29.8 MCHC 35.3 RDW 13.5 Plt Count 275 MPV 9.3 Neut % (Auto) 79.8 H Lymph % (Auto) 13.1 [place] % (Auto) 6.2 Eos % (Auto) 0.7 Baso % (Auto) 0.2 Neut # (Auto) 9.3 H Lymph # (Auto) 1.5 [place] # (Auto) 0.7 Eos # (Auto) 0.1 Baso # (Auto) 0.0 WBC Differential . Differential Comment Auto diff final Sodium Potassium Chloride Carbon Dioxide Anion Gap BUN Creatinine Estimated GFR POC Glucose 213 H Random Glucose Hemoglobin A1c 10.4 H Calcium Phosphorus Magnesium Total Bilirubin AST ALT Alkaline Phosphatase Total Protein Albumin Triglycerides Cholesterol LDL Cholesterol, Calc HDL Cholesterol Cholesterol/HDL Ratio 07/28/18 07/28/18 07/28/18 06:07 08:26 11:53 WBC RBC Hgb Hct MCV MCH MCHC RDW Plt Count MPV Neut % (Auto) Lymph % (Auto) [place] % (Auto) Eos % (Auto) Baso % (Auto) Neut # (Auto) Lymph # (Auto) [place] # (Auto) Eos # (Auto) Baso # (Auto) WBC Differential Differential Comment Sodium 138 Potassium 3.9 Chloride 105 Carbon Dioxide 25.3 Anion Gap 8 BUN 9 Creatinine 0.75 Estimated GFR Greater than 89 POC Glucose 229 H 302 H Random Glucose 207 H Hemoglobin A1c Calcium 8.4 L Phosphorus 2.4 L Magnesium 2.0 Total Bilirubin 0.7 AST 28 ALT 43 Alkaline Phosphatase 127 H Total Protein 7.2 D Albumin 3.3 L Triglycerides 549 H Cholesterol 187 LDL Cholesterol, Calc HDL Cholesterol 28.5 L Cholesterol/HDL Ratio 6.56 07/28/18 17:58 WBC RBC Hgb Hct MCV MCH MCHC RDW Plt Count MPV Neut % (Auto) Lymph % (Auto) [place] % (Auto) Eos % (Auto) Baso % (Auto) Neut # (Auto) Lymph # (Auto) [place] # (Auto) Eos # (Auto) Baso # (Auto) WBC Differential Differential Comment Sodium Potassium Chloride Carbon Dioxide Anion Gap BUN Creatinine Estimated GFR POC Glucose 210 H Random Glucose Hemoglobin A1c Calcium Phosphorus Magnesium Total Bilirubin AST ALT Alkaline Phosphatase Total Protein Albumin Triglycerides Cholesterol LDL Cholesterol, Calc HDL Cholesterol Cholesterol/HDL Ratio Diagnostic Tests: echocardiogram--no thrombus Review/Management - Diagnosis (1) CVA (cerebral vascular accident) Code(s): I63.9 - Cerebral infarction, unspecified Status: Acute Current Visit: Yes - Review/Management Plan: continue plavix and asa, tricor PT/OT follow up hypercoag labs
[2018-07-28 20:01] LABS: Hemoglobin A1c 10.3 % (4.3-6.0)
[2018-07-28 22:18] LABS: Amorphous Sediment,Urine Rare /hpf; Bacteria,Urine Occasional /hpf; Bilirubin,Urine Negative (Negative); Calcium Oxalate Crystals,Urine Moderate /hpf; Clarity,Urine Hazy (Clear); Color,Urine Yellow (Yellw/Straw); Glucose,Urine (UA) 500 or Greater mg/dL (Negative); Hyaline Casts,Urine 1 /lpf (0-3); Leukocyte Esterase,Urine Negative (Negative); Mucus,Urine Few /lpf (Occasional); Nitrite,Urine Negative (Negative); Specific Gravity,Urine 1.028 (1.002-1.035)
[2018-07-28 22:21] LABS: Amphetamine Screen,Urine Neg (Neg); Barbiturate Screen,Urine Neg (Neg); Cannabinoid Screen,Urine Pos (Neg); Cocaine Screen,Urine Pos (Neg)
[2018-07-28 22:27] LABS: Opiate Screen,Urine Neg (Neg)
[2018-07-29] MEDS: hydrALAZINE 25 MG Tablet PO SCH ×3 (00:10→16:25)
[2018-07-29] MEDS: hydrALAZINE HCl Inj 20 MG/ML Vial IV.PUSH PRN (06:37)
[2018-07-29 06:53] LABS: Baso % (Auto) 0.2 % (0.0-2.0); Eos # (Auto) 0.1 th/mm3 (0.0-0.4); Eos % (Auto) 0.8 % (0.0-4.0); Hematocrit 47.6 % (39.0-51.0); Hemoglobin 16.8 gm/dL (13.0-17.0); Lymph # (Auto) 1.7 th/mm3 (1.0-4.8); Lymph % (Auto) 16.3 % (9.0-44.0); Mean Corpuscular HGB Conc 35.4 % (32.0-36.0); Mean Corpuscular Hemoglobin 30.1 pg (27.0-34.0); Mean Platelet Volume 9.3 fL (7.0-11.0); Mono # (Auto) 0.8 th/mm3 (0.0-0.9); Mono % (Auto) 7.7 % (0.0-8.0); Neut # (Auto) 7.6 th/mm3 (1.8-7.7); Platelet Count 259 th/mm3 (150-450); Red Cell Distribution Width 13.5 % (11.6-17.2); White Blood Count 10.1 th/mm3 (4.0-11.0)
[2018-07-29 07:06] LABS: Alanine Aminotransferase 48 U/L (12-78); Albumin 3.2 g/dL (3.4-5.0); Anion Gap 10 meq/L (5-15); Aspartate Aminotransferase 29 U/L (15-37); Blood Urea Nitrogen 16 mg/dL (7-18); Calcium 8.4 mg/dL (8.5-10.1); Carbon Dioxide 23.8 meq/L (21.0-32.0); Chloride 106 meq/L (98-107); Glomerular Filtration Rate Greater Than 89 mL/min (>89); Glucose,Random 191 mg/dL (74-106); Phosphorus 3.3 mg/dL (2.5-4.9); Potassium 4.3 meq/L (3.5-5.1); Sodium 140 meq/L (136-145)
[2018-07-29 07:07] LABS: Alkaline Phosphatase 123 U/L (45-117); Total Protein 6.8 g/dL (6.4-8.2)
[2018-07-29] MEDS: Fenofibrate 145 MG Tablet PO SCH (08:13)
[2018-07-29] MEDS: Famotidine 20 MG Tablet PO SCH ×2 (08:13→21:39)
[2018-07-29] MEDS: Insulin NovoLOG Aspart Correctional Sugar Inj SQ SCH ×4 (08:51→21:43)
[2018-07-29] MEDS ORDERED: Acetaminophen 325 MG Tablet PO PRN (09:06)
[2018-07-29] MEDS: amLODIPine 5 MG Tablet PO SCH (10:37)
[2018-07-29] MEDS: Lisinopril 20 MG Tablet PO SCH (10:37)
--- NOTE | 2018-07-29 10:57 | P.PNIM ---
Subjective Interval history: Chief Complaint: LEFT SIDE FLACCID AND LEFT FACIAL DROOP History of Present Illness: Patient is a 53-year-old male who presented to the emergency department symptoms of left facial droop and slurred speech around midnight. Patient was then brought to the hospital for further evaluation. Not moving his left upper extremity well and left lower extremity well and had some left facial droop. Patient had a CAT scan of the head which showed tiny bilateral remote H basal ganglia lacunar infarcts. Small white matter lacunar adjacent to the right trigone which also appears old no evidence of intracranial hemorrhage or mass nothing to suggest acute infarction extracranial structures are benign and intact His head CTA showed no acute cervical Ricketts vascular findings Neck CTA was negative for CTA carotid Neurology will be consulted and patient will be admitted. 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 HAD MRI LEFT HAND MORE MOBILE THAN YESTERDAY [employer] RN AND PT AND CM FMLA PAPERWORK AND OTHER PAPERWORK SIGNED AM LABS KEEP ICU TODAy STARTED ON TRICOR FOR HYPERTRIGLYCERIDEMIA 11-8 BLOOD PRESSURE STILL NOT AT GOAL WILL TRY TO CONTINUE SCHEDULED MEDS FOR GOAL OF 170 SBP AM LABS TRANSFER OUT OF ICU Physical Exam Vital signs: Vital Signs 07/28/18 11:01 07/28/18 12:00 07/28/18 13:00 Temperature 98.3 F Pulse Rate 104 H 97 H 94 H Respiratory Rate 19 28 H 34 H Blood Pressure 181/90 H 171/75 H 159/85 H Pulse Oximetry 97 96 97 07/28/18 14:00 07/28/18 14:01 07/28/18 15:00 Temperature Pulse Rate 111 H 111 H 101 H Respiratory Rate 30 H 23 Blood Pressure 159/86 H 162/70 H Pulse Oximetry 97 95 07/28/18 16:00 07/28/18 16:17 07/28/18 17:00 Temperature 97.8 F Pulse Rate 96 H 95 H 88 Respiratory Rate 17 23 Blood Pressure 174/76 H 141/71 H Pulse Oximetry 96 97 07/28/18 18:00 07/28/18 19:00 07/28/18 19:01 Temperature Pulse Rate 93 H 92 H 89 Respiratory Rate 25 H 27 H 30 H Blood Pressure 153/103 H 187/104 H Pulse Oximetry 97 95 96 07/28/18 20:00 07/28/18 20:01 07/28/18 20:34 Temperature 97.6 F Pulse Rate 94 H 93 H Respiratory Rate 23 39 H Blood Pressure 184/81 H Pulse Oximetry 97 96 95 07/28/18 21:01 07/28/18 21:11 07/28/18 22:00 Temperature Pulse Rate 91 H 90 Respiratory Rate 32 H 22 Blood Pressure 174/81 H Pulse Oximetry 96 96 96 07/28/18 22:01 07/28/18 23:00 07/28/18 23:01 Temperature Pulse Rate 90 76 75 Respiratory Rate 24 19 18 Blood Pressure 183/84 H 178/72 H 178/72 H Pulse Oximetry 97 96 96 07/29/18 00:00 07/29/18 00:01 07/29/18 01:00 Temperature 97.6 F Pulse Rate 75 75 77 Respiratory Rate 19 19 14 Blood Pressure 170/72 H 179/79 H Pulse Oximetry 96 96 97 07/29/18 01:01 07/29/18 02:00 07/29/18 02:01 Temperature Pulse Rate 77 74 76 Respiratory Rate 12 0 L 0 L Blood Pressure 187/79 H 170/72 H Pulse Oximetry 98 97 96 07/29/18 03:00 07/29/18 03:01 07/29/18 04:00 Temperature 97.6 F Pulse Rate 73 73 71 Respiratory Rate 5 L 3 L 18 Blood Pressure 178/80 H 174/76 H Pulse Oximetry 94 L 94 L 96 07/29/18 04:01 07/29/18 05:00 07/29/18 05:01 Temperature Pulse Rate 74 67 68 Respiratory Rate 9 L 17 19 Blood Pressure 174/76 H 168/72 H 168/72 H Pulse Oximetry 96 98 96 07/29/18 06:00 07/29/18 06:01 07/29/18 08:24 Temperature Pulse Rate 93 H 87 Respiratory Rate 15 9 L Blood Pressure 193/88 H 193/88 H Pulse Oximetry 95 96 97 Intake & Output 07/28/18 07/29/18 07/29/18 18:59 06:59 18:59 Intake Total 550 / 550 480 / 480 Balance 550 / 550 480 / 480 Weight 109.5 kg Intake: Oral 550 / 550 480 / 480 Other: # Voids 3 2 Date of Last Bowel Movement 07/28/18 07/28/18 07/28/18 # Bowel Movements 1 0 Narrative: GENERAL: Awake alert oriented x3 talkative and cooperative SKIN: Warm and dry. HEAD: Atraumatic. Normocephalic. EYES: Pupils equal and round. No scleral icterus. No injection or drainage. EOMI ENT: No nasal bleeding or discharge. Mucous membranes pink and moist. Tongue deviates to the left side oral mucosa is moist NECK: Trachea midline. No JVD. Supple CARDIOVASCULAR: Regular rate and rhythm. S1-S2 no S3 or S4 RESPIRATORY: No accessory muscle use. Clear to auscultation. Breath sounds equal bilaterally. GASTROINTESTINAL: Abdomen soft, non-tender, nondistended. Hepatic and splenic margins not palpable. Obese MUSCULOSKELETAL: Extremities without clubbing, cyanosis, or edema. No obvious deformities. Left upper extremity weakness and decreased mobility and left lower extremity weakness and decreased mobility NEUROLOGICAL: Awake and alert. No obvious cranial nerve deficits. Motor grossly within normal limits. Five out of 5 muscle strength in the arms and legs on the right. 3 out of 5 on the left upper extremity and 4 out of 5 on the left lower extreme normal speech. PSYCHIATRIC: Appropriate mood and affect; insight and judgment normal. Results - Labs CBC & Chem 7: 07/29/18 05:33 07/29/18 05:33 Laboratory Results - last 24 hr 07/28/18 07/28/18 07/28/18 06:07 11:53 17:58 WBC RBC Hgb Hct MCV MCH MCHC RDW Plt Count MPV Neut % (Auto) Lymph % (Auto) [place] % (Auto) Eos % (Auto) Baso % (Auto) Neut # (Auto) Lymph # (Auto) [place] # (Auto) Eos # (Auto) Baso # (Auto) WBC Differential Differential Comment Sodium Potassium Chloride Carbon Dioxide Anion Gap BUN Creatinine Estimated GFR POC Glucose 302 H 210 H Random Glucose Hemoglobin A1c 10.3 H Calcium Phosphorus Magnesium Total Bilirubin AST ALT Alkaline Phosphatase Total Protein Albumin Urine Color Urine Clarity Urine pH Ur Specific [place] Urine Protein Urine Glucose (UA) Urine Ketones Urine Occult Blood Urine Nitrate Urine Bilirubin Urine Urobilinogen Ur Leukocyte Esterase Urine RBC Urine WBC Calcium Oxalate Crystal Amorphous Sediment Urine Bacteria Hyaline Casts Urine Mucus Micro UA Comment Ur Microscopic Review Urine Culture Comments Urine Opiates Screen Ur Barbiturates Screen Ur Amphetamines Screen U Benzodiazepines Scrn Urine Cocaine Screen U Cannabinoids Screen 07/28/18 07/28/18 07/28/18 21:10 21:10 21:30 WBC RBC Hgb Hct MCV MCH MCHC RDW Plt Count MPV Neut % (Auto) Lymph % (Auto) [place] % (Auto) Eos % (Auto) Baso % (Auto) Neut # (Auto) Lymph # (Auto) [place] # (Auto) Eos # (Auto) Baso # (Auto) WBC Differential Differential Comment Sodium Potassium Chloride Carbon Dioxide Anion Gap BUN Creatinine Estimated GFR POC Glucose 276 H Random Glucose Hemoglobin A1c Calcium Phosphorus Magnesium Total Bilirubin AST ALT Alkaline Phosphatase Total Protein Albumin Urine Color Yellow Urine Clarity Hazy H Urine pH 5.0 Ur Specific [place] 1.028 Urine Protein 100 H Urine Glucose (UA) 500 or greater Urine Ketones Negative Urine Occult Blood Negative Urine Nitrate Negative Urine Bilirubin Negative Urine Urobilinogen Less than 2 Ur Leukocyte Esterase Negative Urine RBC 1 Urine WBC 8 H Calcium Oxalate Crystal Moderate H Amorphous Sediment Rare H Urine Bacteria Occasional H Hyaline Casts 1 Urine Mucus Few H Micro UA Comment Culture not ind Ur Microscopic Review Not Reportable Urine Culture Comments Culture not ind Urine Opiates Screen Neg Ur Barbiturates Screen Neg Ur Amphetamines Screen Neg U Benzodiazepines Scrn Neg Urine Cocaine Screen Pos H U Cannabinoids Screen Pos H 07/29/18 07/29/18 07/29/18 05:33 05:33 08:20 WBC 10.1 RBC 5.60 Hgb 16.8 Hct 47.6 MCV 85.0 MCH 30.1 MCHC 35.4 RDW 13.5 Plt Count 259 MPV 9.3 Neut % (Auto) 75.0 H Lymph % (Auto) 16.3 [place] % (Auto) 7.7 Eos % (Auto) 0.8 Baso % (Auto) 0.2 Neut # (Auto) 7.6 Lymph # (Auto) 1.7 [place] # (Auto) 0.8 Eos # (Auto) 0.1 Baso # (Auto) 0.0 WBC Differential . Differential Comment Auto diff final Sodium 140 Potassium 4.3 Chloride 106 Carbon Dioxide 23.8 Anion Gap 10 BUN 16 Creatinine 0.79 Estimated GFR Greater than 89 POC Glucose 206 H Random Glucose 191 H Hemoglobin A1c Calcium 8.4 L Phosphorus 3.3 Magnesium 2.0 Total Bilirubin 0.6 AST 29 ALT 48 Alkaline Phosphatase 123 H Total Protein 6.8 Albumin 3.2 L Urine Color Urine Clarity Urine pH Ur Specific [place] Urine Protein Urine Glucose (UA) Urine Ketones Urine Occult Blood Urine Nitrate Urine Bilirubin Urine Urobilinogen Ur Leukocyte Esterase Urine RBC Urine WBC Calcium Oxalate Crystal Amorphous Sediment Urine Bacteria Hyaline Casts Urine Mucus Micro UA Comment Ur Microscopic Review Urine Culture Comments Urine Opiates Screen Ur Barbiturates Screen Ur Amphetamines Screen U Benzodiazepines Scrn Urine Cocaine Screen U Cannabinoids Screen - Imaging ITS Impressions Head CT 07/27/18 04:38 CONCLUSION: No acute findings Report was called by [Keyana Mattson at 0454 hours ] Head CTA 07/27/18 04:38 CONCLUSION: No acute [place] of Ricketts vascular findings. Report was called by [Keynaa Mattson at 0513 hours Neck CTA 07/27/18 04:38 CONCLUSION: Negative CTA Carotid. Head MRI 07/27/18 06:02 CONCLUSION: 1. Periventricular white matter signal abnormalities on the FLAIR weighted images which are nonspecific. This could be related to a demyelinating disorder or chronic small vessel ischemic change. 2. Old lacunar infarct in the right basal ganglia and [place]. There is no restricted diffusion. Assessment and Plan - Plan Acute CVA with left upper extremity weakness and left lower extremity weakness- SOME IMPROVEMENT IN LEFT UE WEAKNESS AND HAND MOBILITY -Not showing on CAT scan we will get MRIs -Consult neurology -Aspirin daily we will add Plavix -PT and OT and speech therapy to eval and treat -Resume home medications try and keep systolic blood pressure under 180 -Start a statin Hypertension resume home medications- MEDICATIONS HAVE BEEN ADJUSTED Diabetes sliding scale coverage and Accu-Cheks before meals and at bedtime Noncompliance recommend that patient take his medications when he leaves the hospital History of tobacco abuse currently not smoking LEFT THYROID NODULE- MAY NEED BIOPSY IN FUTURE- CHECK TSH AND FREE T4 DVT prophylaxis GI prophylaxis with Pepcid PT and OT and speech therapy to evaluate and treat AM LABS PAPERWORK FOR FMLA ETC SIGNED Code Status: FULL CODE Discussed Condition With: RN AND PT AND CM Discharge Planning: Once cleared by neurology and moving better
[2018-07-29 16:53] VITALS: RESP 18
[2018-07-30] MEDS: hydrALAZINE 25 MG Tablet PO SCH ×2 (01:54→09:11)
[2018-07-30 07:53] LABS: Dil Russell Viper Venom Conf ( ND (NEGATIVE); Dil Russell Viper Venom Time M ND (CORRECTED); Lupus Anticoagulant PTT Screen 32 seconds (< OR = 40)
--- NOTE | 2018-07-30 08:10 | P.DS ---
Date of admission: 07/27/18 06:10 Primary care physician: No Primary Care Physician Attending physician on discharge: Brte Hicks Anticipated date of discharge: 07/30/18 Brief History from admission: Patient is a 53-year-old male who presented to the emergency department symptoms of left facial droop and slurred speech around midnight. Patient was then brought to the hospital for further evaluation. Not moving his left upper extremity well and left lower extremity well and had some left facial droop. Patient had a CAT scan of the head which showed tiny bilateral remote H basal ganglia lacunar infarcts. Small white matter lacunar adjacent to the right trigone which also appears old no evidence of intracranial hemorrhage or mass nothing to suggest acute infarction extracranial structures are benign and intact His head CTA showed no acute cervical Ricketts vascular findings Neck CTA was negative for CTA carotid Neurology will be consulted and patient will be admitted. Still has very uncontrolled blood pressure at this may be secondary to his medical noncompliance with medication Patient's past medical history is significant for diabetes and hypertension but he has not been taking any medications lately and is not following up with her primary care physician Family history is positive for myocardial infarctions as well as hypertension and diabetes in his family Patient works here as a network security officer Patient update on day of discharge: Follow up on patient with CVA. Patient seen and examined. Patient says he is improving. He says he has more strength in his left arm and leg. He is now almost able to make a complete fist with the left hand. He is now able to lift his left leg up off the bed. He says he was able to ambulate with the walker. He denies any dizziness, lightheadedness, headache or vision changes. He denies any chest pain or dyspnea. DS: Diagnosis - Discharge Diagnosis (1) Uncontrolled hypertension Status: Acute (2) CVA (cerebral vascular accident) Status: Acute (3) Hemiparesis due to recent stroke Status: Acute (4) Diabetes Status: Acute (5) Thyroid nodule Status: Acute DS: Summary Hospital Course: Patient presented with left-sided facial droop, slurred speech and weakness in the left upper and lower extremity. Patient had hypertensive urgency with blood pressure of 249/113. Head CT showed no acute changes. There were very small bilateral remote basal ganglia lacunar infarctions, small white matter lacune in the right trigone. No hemorrhage was identified. Patient was outside of the window for TPA. CT of the head of the neck was negative. Carotid arteries were within normal limits. CT angiogram of the brain was within normal limits. There is no evidence of large vessel occlusion. MRI of the brain revealed periventricular white matter signal abnormalities on the FLAIR images possibly related to demyelinating disorder or chronic small vessel ischemic change and old lacunar infarct in the right basal ganglia and perry. Patient was seen in consultation by neurology. Echocardiogram revealed EF 50-55 % and mild concentric left ventricular hypertrophy. Patient's blood pressure was improved with combination of antihypertensives. He was found to have uncontrolled diabetes with A1c of 10.4 and was started on oral metformin and Levemir 5 units twice daily. He was started on TriCor for treatment of hypertriglyceridemia of 549. Patient was seen in consultation by rehab medicine. He began this patient with physical therapy and Occupational Therapy. Patient began to improve clinically. Patient reached maximal benefit from hospitalization. He was evaluated and accepted by [facility] for comprehensive rehabilitation. - Time Spent with Patient Total time spent providing and/or coordinating discharge services: Greater than 30 minutes Exam Vital signs: Vital Signs 07/29/18 08:00 07/29/18 08:24 07/29/18 09:00 Temperature 97.6 F Pulse Rate 84 99 H Respiratory Rate 25 H 25 H Blood Pressure 174/79 H 198/93 H Pulse Oximetry 96 97 99 07/29/18 10:00 07/29/18 11:00 07/29/18 12:00 Temperature 98.1 F Pulse Rate 107 H 106 H 100 H Respiratory Rate 19 20 19 Blood Pressure 214/106 H 146/76 H 146/68 H Pulse Oximetry 97 94 L 99 07/29/18 13:00 07/29/18 14:00 07/29/18 16:00 Temperature 97.7 F Pulse Rate 91 H 90 97 H Respiratory Rate 15 26 H 18 Blood Pressure 148/74 H 160/77 H 181/74 H Pulse Oximetry 95 96 97 07/29/18 20:00 07/30/18 00:00 07/30/18 04:00 Temperature 97.8 F 98 F 98.1 F Pulse Rate 87 75 74 Respiratory Rate 18 18 18 Blood Pressure 136/60 135/71 169/82 H Pulse Oximetry 95 92 L 96 Intake & Output 07/29/18 07/30/18 07/30/18 18:59 06:59 18:59 Weight 108.7 kg Other: # Voids 2 Date of Last Bowel Movement 07/28/18 Narrative: GENERAL: WDWN obese male patient, INAD. Awake and alert. Appears comfortable. SKIN: Warm and dry. No generalized rash. HEAD: Atraumatic. Normocephalic. EYES: Pupils equal and round. No scleral icterus. No injection or drainage. ENT: No nasal bleeding or discharge. Mucous membranes pink and moist. NECK: Trachea midline. CARDIOVASCULAR: Regular rate and rhythm. RESPIRATORY: No accessory muscle use. Clear to auscultation. Breath sounds equal bilaterally. GASTROINTESTINAL: Abdomen soft, non-tender, nondistended. +BS. MUSCULOSKELETAL: Extremities without clubbing, cyanosis, or edema. No obvious deformities. NEUROLOGICAL: Awake and alert. No obvious cranial nerve deficits. Able to move all extremities spontaneously. He was noted to have weakness of the left upper and lower extremity. Normal speech. PSYCHIATRIC: Appropriate mood and affect; insight and judgment normal. Results Procedures completed during hospitalization: None Labs on day of discharge: Labs from last 24 hours 07/29/18 07/29/18 07/29/18 19:51 16:27 12:36 POC Glucose 291 H 258 H 273 H 07/29/18 08:20 POC Glucose 206 H - Impressions ITS Impressions Head CT 07/27/18 04:38 CONCLUSION: No acute findings Report was called by [Keyana Mattson at 0454 hours ] Head CTA 07/27/18 04:38 CONCLUSION: No acute [place] of Ricketts vascular findings. Report was called by [Keyana Mattson at 0513 hours Neck CTA 07/27/18 04:38 CONCLUSION: Negative CTA Carotid. Head MRI 07/27/18 06:02 CONCLUSION: 1. Periventricular white matter signal abnormalities on the FLAIR weighted images which are nonspecific. This could be related to a demyelinating disorder or chronic small vessel ischemic change. 2. Old lacunar infarct in the right basal ganglia and perry. There is no restricted diffusion. Discharge Plan - Discharge Disposition Patient Disposition: 62 Rehab Inpatient - Discharge Condition Condition: Stable - Discharge Order Discharge Orders: Discharge Order (Routine); Ordered 07/30/18 Ordered By: [place] Garza - Discharge Details Anticipated Discharge Date: 07/30/18 - Physicians Team Primary Care Provider: Primary Care Last,Bridgette Attending Provider: Bret Hicks Other Providers: Gaston Anton MD ; Aurea Escoto MD
[2018-07-30] MEDS ORDERED: Insulin Detemir Inj 1,000 UNIT/10 ML Vial SQ SCH (09:00)
[2018-07-30] MEDS: Famotidine 20 MG Tablet PO SCH (09:11)
[2018-07-30] MEDS: amLODIPine 5 MG Tablet PO SCH (09:11)
[2018-07-30] MEDS: Fenofibrate 145 MG Tablet PO SCH (09:12)
[2018-07-30] MEDS: Lisinopril 20 MG Tablet PO SCH (09:12)
[2018-07-30] MEDS: Insulin NovoLOG Aspart Correctional Sugar Inj SQ SCH (09:23)
[2018-07-30 12:43] VITALS: BP 131/72; PULSE 87; TEMP 97.4; O2SAT 96
[2018-07-30 19:16] LABS: Factor V Leiden Mutation Negative (Negative)
--- NOTE | 2018-07-30 19:52 | HM ---
Date Performed: 07/28/2018 Time Performed: 11:09:00 HOOKUP DATE: 07/28/18 11:09:00 AM Wed ANALYSIS START TIME: 07/28/2018 11:14:00 AM ANALYSIS END TIME: 07/29/2018 11:18:00 AM PATIENT AGE: 53 PATIENT HEIGHT: 65 PATIENT WEIGHT: 241 DRUG LIST: ROOM 1328 PATIENT DIAGNOSIS: CVA TEST NARRATIVE: The patient's average heart rate was 90 BPM. Heart rates greater than 120 B PM were noted 1% of the time. No episodes of bradycardia were noted. No pauses exceeding 2.0 sec onds were noted. 19 ventricular ectopics, which represented < 1% of the total beat count, were no cody. The highest ventricular ectopic frequency occurred from 06:00 PM to 07:00 PM Wed. During this time 4 VE(s) occurred. Ventricular ectopics were observed as 19 isolated beat(s) only. No couplets or runs were noted. 10 supraventricular ectopics, which represented < 1% of the total beat count, were noted. The highest supraventricular ectopic frequency occurred from 08:00 PM to 09:00 PM Wed. During this time 3 SVE(s) occurred. No episodes of ST depression (defined as -1.0 mm or more) we re noted in channel 1. No episodes of ST depression (defined as -1.0 mm or more) were noted in chann el 2. No episodes of ST depression (defined as -1.0 mm or more) were noted in channel 3. NO DIARY WA S GIVEN TO PATIENT TEST INTERPRETATION: No diary was given to the patient. No significant pauses are present. The u nderlying rhythm is Sinus rhythm with average rate 90 bpm. Range is 63 to 128 bpm. Rare isolated PVCs are seen. Occasional premature atrial contractions are seen with a single three beat atrial run. Signed by : Jeff Canada
[2018-08-02 13:26] LABS: Protein C Antigen 103 % (70-150); Protein C Functional 115 % (70 - 150); Protein S Antigen Free 132 % (65 - 160)
== END 2018-07-30 13:03 ==
LOC: NEPE 04:37 → NEDA 06:10 → N03 07:23 → N05 07-29 14:53
PROVIDERS: ADMIT Hospitalist; ATTEND Hospitalist